=== PATIENT | female | born 1950 | race Caucasian/White ===

== ENCOUNTER 2023-01-25 01:11 | Inpatient (IN) | payer MEDICARE, SELFPAY ==
[2023-01-25] VITALS (60 sets, daily range): BP systolic 103–147; BP diastolic 58–107; PULSE 64–141; RESP 12–29; TEMP 36–36.7; O2SAT 65–100; BMI 39.6; BMI 38.5
--- NOTE | 2023-01-25 | ECHO_ITS ---
Patient Info Name: Janeth Betancur Age: 73 years : 1950 Gender: Female Ht: 64 in Wt: 220 lbs BSA: 2.17 m2 HR: 78 bpm BP: 135 / 107 mmHg Technical Quality: Poor Exam Date: 01/25/2023 3:26 PM Exam Location: Echo Lab Exam Room: 213 Patient Status: Outpatient Admit Date: 01/25/2023 Staff Ordering Physician: Cynthia Black DO Jacquard Loom Carpet Weaver: Maki Mayers RDCS Attending Provider: Cynthia Black DO Referring Physician: Sofia THOMPSON; Exam Type: CA echo dop color flow w con Study Info Indications - PULM EDEMA DIASTOLIC HF Complete two-dimensional, color flow and Doppler transthoracic echocardiogram is performed with contrast to opacify the left ventricle and to improve the deliniation of the left ventricle endocardial borders. Contrast/Agitated Saline Contrast/Ag. Saline: Definity Amount: 2.00 ml Administered By: Maki Mayers [facility] Existing IV Access: Yes IV Access Condition: patent with no signs of infiltration Reason for Poor Study: patient body habitus Summary 1. Mild left ventricular enlargement with normal thickness. Normal left ventricular function, with no focal wall abnormalities. EF 55-60%. Grade 2 diastolic dysfuntion. 2. Left atrial chamber dimension is mildly enlarged. 3. There is moderate to moderately severe mitral valve regurgitation. 4. Moderate pulmonary hypertension, estimated pulmonary arterial systolic pressure is 55 mmHg. 5. Normal sinus rhythm. Left Ventricle Left ventricular chamber dimension is mildly enlarged. Left ventricular systolic function is normal, estimated at 55-60%. There is no increased left ventricular wall thickness. Left ventricular septal wall motion is normal. The left ventricular diastolic function is grade II diastolic dysfunction. Right Ventricle Right ventricular chamber dimension is normal. Right ventricular systolic function is normal. Left Atria Left atrial chamber dimension is mildly enlarged. Right Atria Right atrial chamber dimension is normal. Aortic Valve The aortic valve is trileaflet. There is no aortic valve sclerosis. There is no aortic valve stenosis. There is no aortic valve regurgitation. Pulmonic Valve The pulmonic valve is normal. There is no pulmonic valve stenosis. There is no pulmonic regurgitation. Mitral Valve The mitral valve has normal leaflets. There is no mitral valve stenosis. There is moderate to moderately severe mitral valve regurgitation. Tricuspid Valve The tricuspid valve leaflets are normal. There is no significant tricuspid valve stenosis. There is trace tricuspid valve regurgitation. Moderate pulmonary hypertension, estimated pulmonary arterial systolic pressure is 55 mmHg. Pericardium/Pleural The pericardium appears normal. There is no pericardial effusion. Inferior Vena Cava Normal inferior vena cava with >50% collapse upon inspiration consistent with Empty right atrial pressure, 10 mmHg. Aorta The aortic root size at the sinus of Valsalva is normal. The prox ascending aorta size is normal. Left Ventricular Outflow Tract Name Value Normal LVOT 2D LVOT Diameter 1.99 cm LVOT Doppler LVOT Peak Gradient
--- NOTE | ~2023-01-25 | XR_ITS ---
EXAMINATION: XR chest 1V portable DATE: 01/28/2023 12:32 INDICATION: Congestive heart failure. Dyspnea on exertion. TECHNIQUE: A single frontal view of the chest was obtained. COMPARISON: Chest single view 01/25/2023, chest CT 01/25/2023 FINDINGS: There is no pneumonia, pleural effusion, or pneumothorax. Cardiomegaly is noted. IMPRESSION: 1. Cardiomegaly. Reviewed, dictated and finalized at location A. NNA DESIGN ENGINEER IMPRESSION: 1. Cardiomegaly.
--- NOTE | ~2023-01-25 | NM_ITS ---
EXAMINATION: NM lung vent and perfusion DATE: 01/25/2023 12:31 INDICATION: Shortness of breath. TECHNIQUE: 7.933 mCi xenon-133 was administered for respiration images. 5.5 mCi Tc-99m MAA was admini stered intravenously for perfusion images. Scintigraphic images of the chest were obtained. COMPARISON: Chest CT 01/25/2023, chest single view 01/25/2023 FINDINGS: Respiration images demonstrate multiple small and moderate size defects. Perfusion images show matche d small and moderate size defects in the lower lobes and upper lobes. IMPRESSION: 1. Nondiagnostic (intermediate probability for pulmonary embolism). Reviewed, dictated and finalized at location A. RANCE ANALYST
--- NOTE | ~2023-01-25 | CT_ITS ---
CT Scan of the Chest without Contrast: Clinical Indication: Shortness of breath Technique: Contiguous sections were acquired throughout the chest without intravenous contrast. Dose reduction technique was used on this scan by utilizing automated exposure control and iterative recon struction technique. The dose-length product (DLP) was 552.25 mGy-cm. Findings: There is no evidence of any significant mediastinal, hilar or axillary lymphadenopathy. Shotty medias tinal lymph nodes not frankly enlarged by size criteria. No pericardial effusion. Small bilateral pleural effusions are present. There is extensive patchy groundglass opacity througho ut both lungs. Images through the upper abdomen reveal no abnormalities. Impression: Patchy groundglass opacity throughout both lungs, suggestive of moderate pulmonary edema. Correlate c linically for infection or other alveolar airspace disease processes. Small bilateral pleural effusions. Reviewed, dictated and finalized at [facility] [place]. ACE SUPPLY BREATHING APPARATUS Impression: Patchy groundglass opacity throughout both lungs, suggestive of moderate pulmon christian edema. Correlate clinically for infection or other alveolar airspace diseas e processes. Small bilateral pleural effusions.
--- NOTE | ~2023-01-25 | CT_ITS ---
EXAMINATION: CTA chest DATE: 01/31/2023 01:30 INDICATION: Hypoxia. TECHNIQUE: Computed tomographic angiography (CTA) of the chest was performed without and with 100 mL Omnipaque-350 intravenous contrast. Automated exposure control and iterative reconstruction technique were employed. The dose-length product was 848.94 mGy-cm. Maximum intensity projection 3D-reconstruc tions of the aorta and other arteries were constructed by the technologist on a separate workstation. COMPARISON: Chest CT 01/25/2023 FINDINGS: The lungs demonstrate mild atelectasis. There are widespread patchy groundglass opacities i n the lungs. No pleural effusion. There are nodules in the thyroid measuring up to 13 mm, likely not clinically significant. Cardiomegaly is noted. No pericardial effusion. Calcified right hilar lymph n odes are consistent with old granulomatous disease. There is mild aortic atherosclerosis. There is no pulmonary embolus. There is a small sliding hiatal hernia. Calcifications in the liver and spleen ar e consistent with old granulomatous disease. 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 Ther e is severe thoracic spondylosis. There is mild chronic anterior wedging of multiple thoracic vertebr al bodies. IMPRESSION: 1. Mild aortic atherosclerosis. No aortic aneurysm or dissection. 2. No pulmonary embolus. 3. Diffuse lung disease, stable from 01/25/2023, consistent with pulmonary edema versus atypical pneu monia. Reviewed, dictated and finalized at location E. R SETTER IMPRESSION: 1. Mild aortic atherosclerosis. No aortic aneurysm or dissection. 2. No pulmonary embolus. 3. Diffuse lung disease, stable from 01/25/2023, consistent with pulmonary dory a versus atypical pneumonia.
--- NOTE | ~2023-01-25 | XR_ITS ---
Portable chest x-ray Comparison: None Clinical History: Shortness of breath Findings: Extensive hazy airspace disease is consistent with moderate pulmonary edema. No definite p leural effusions. Cardiomediastinal silhouette is unremarkable. Bones and soft tissues are unremarka ble. Impression: Moderate pulmonary edema pattern. Reviewed, dictated and finalized at [facility]. GER LANDSCAPE Impression: Moderate pulmonary edema pattern.
--- NOTE | 2023-01-25 01:13 | ECG_ITS ---
Measurements Intervals [place] Rate: 155 P: 232 GA: 82 QRS: 60 QRSD: 112 T: 45 QT: 346 QTc: 556 Interpretive Statements SUPRAVENTRICULAR TACHYCARDIA, CONSIDER ATRIAL FLUTTER INTRAVENTRICULAR CONDUCTION DELAY CANNOT RULE OUT SEPTAL INFARCT, AGE INDETERMINATE BORDERLINE ST-T WAVE ABNORMALITY- DIFFUSE LEADS BASELINE ARTIFACT- I, II, AVR, AVL, AVF, V1-V6 ABNORMAL ECG NO PREVIOUS ECG AVAILABLE FOR COMPARISON Electronically Signed On 01-25-2023 6:24:32 STAFF DEVELOPMENT EDUCATOR by Itz Griffin D.O.
--- NOTE | 2023-01-25 01:36 | ED.SOB ---
HPI - SOB/Dyspnea General Chief Complaint: Shortness of Breath/Dyspnea Stated Complaint: sob Time Seen by Provider: 01/25/23 01:12 History of Present Illness HPI Narrative: Pt brought in by ems for respiratory distress. She denies h/o asthma, copd and CHF. She has bilateral lower extremity edema. EMS states when they picked her up she could speak in 2 word sentences that were given her an albuterol treatment she became acutely more short of breath with inability to talk. She is currently on BiPAP and nods her head saying that she has had flu-like symptoms past couple days. She is currently taking her to chemotherapy regularly. Related Data Allergies Allergy/AdvReac Type Severity Reaction Status Date / Time iodine Allergy Rash Verified 01/25/23 03:44 Penicillins Allergy Other Verified 01/25/23 03:44 Review of Systems Review of Systems: Unable to obtain complete review of systems due to patient's respiratory distress Exam Narrative: GENERAL: Acute distress, short of breath, tachypneic HEAD: Normocephalic, atraumatic. EYES: PERRLA and EOMI. ENT: Nares clear, no rhinorrhea or epistaxis. Mucous membranes moist. NECK: Supple. CHEST: Respiratory distress lungs coarse HEART: Regular rate and rhythm. ABDOMEN: Soft, nontender, nondistended. EXTREMITIES: Normal range of motion. Edema bilateral lower extremity. SKIN: Warm, dry, no rash. NEURO: No focal deficits. Alert and oriented x3. PSYCH: Normal mood and affect. Course Course Emergency Course: Due to high probability of clinically significant lift threatening deterioration, the patient required my highest level of preparedness to intervene emergently. Critical care time documented not including procedures needed Telemetry ordered due to shortness of breath to evaluate for dysrhythmias. Evaluated by myself. Rhythm sinus tach Rate 130 Patient very critically ill and placed on BiPAP. Concern for CHF versus acute pulmonary edema versus COVID or PE. Vital Signs Vital signs: Vital Signs Pulse Rate 87 01/25/23 01:00 Respiratory Rate 27 H 01/25/23 01:00 Pulse Oximetry 98 01/25/23 01:00 Oxygen Delivery BiPAP 01/25/23 01:00 Temperature 36.7 C 01/25/23 01:15 Pulse Rate 141 H 01/25/23 01:15 Respiratory Rate 29 H 01/25/23 01:15 Blood Pressure 135/107 H 01/25/23 01:15 Pulse Oximetry 65 L 01/25/23 01:15 Oxygen Delivery Room Air 01/25/23 01:15 MDM - SOB/Dyspnea MDM Narrative Medical decision making narrative: White blood cell count elevated to 18 ABG shows hypoxemia but her pulse ox is consistently high 90s playground monitor normal sinus rhythm and she blood pressure is normal D-dimer and BNP both elevated CT chest ordered Due to elevated BMP clinical presentation Lasix ordered Lab Data 01/25/23 01:37 01/25/23 01:37 Labs: Lab Results 01/25/23 01/25/23 Range/Units 01:37 01:41 WBC 18.1 H (4.5-10.0) K/mm3 RBC 5.15 (4.2-5.4) M/mm3 Hgb 13.7 (12.0-15.0) g/dL Hct 45.3 (37.0-47.0) % MCV 88.0 (80-100) fl MCH 26.6 (26-34) pg MCHC 30.2 L (32-36) g/dl RDW 15.7 H (11.5-14.5) % Plt Count 377 H (150-375) k/mm3 MPV 10.3 (7.4-10.4) fl Immature Gran % (Auto) 0.8 H (0-0.5) % Neut % (Auto) 78.6 H (45.5-73.1) % Lymph % (Auto) 11.9 L (18.3-44.2) % [place] % (Auto) 6.9 (2.6-8.5) % Eos % (Auto) 1.4 (0-4.4) % Baso % (Auto) 0.4 (0.2-1.2) % Lymph # (Auto) 2.16 (0.9-3.2) K/mm3 [place] # (Auto) 1.2 H (0.1-0.6) K/mm3 Eos # (Auto) 0.3 (0-0.3) K/mm3 Baso # (Auto) 0.1 (0.0-0.1) K/mm3 Abs Immat Gran (auto) 0.15 H (0.00-0.031) K/mm3 Absolute Neuts (auto) 14.2 H (1.3-6.7) K/mm3 Absolute Nucleated RBC 0.0 (0.0-0.012) K/mm3 Nucleated RBC % 0.0 (0.0-0.2) % PT 14.5 (11.1-14.7) Seconds INR 1.1 D-Dimer 2.08 H (<0.48) ug/mL Expiratory Pressure 6 CMH2O Inspiratory Pressure 12 CMH2O Sodium 140 (137-145) mmol/L
[2023-01-25] MEDS: diphenhydrAMINE HCl INJ 50 MG/ML VIAL 25 MG IV PUSH (01:42)
[2023-01-25] MEDS: ONDANSETRON INJ 4 MG/2 ML VIAL (01:42)
[2023-01-25] MEDS: MAGNESIUM SULF 2 GM/WATER 50ML 2 GM/50 ML BAG IVPB (01:43)
[2023-01-25] MEDS: methylPREDNISolone SOD SUCC 125 MG VIAL IV PUSH (01:43)
[2023-01-25] MEDS: METOCLOPRAMIDE HCL INJ 10 MG/2 ML VIAL IV PUSH (01:44)
[2023-01-25 01:53] LABS: Alveolar/Arterial O2 Gradient 208.9 mmHg; Base Excess ABG -5.8 mEq/l (+/-2.0); Fractional Inspired Oxygen 60 %; HCO3 ABG 21.3 mEq/l (22.0-26.0); Oxygen Content ABG 19.3 %vol (16.0-22.0); Oxygen Saturation ABG 98.9 % (95.0-100.0); Oxyhemoglobin 97.2 % THb (90.0-100.0); PCO2 ABG 47.9 mmHg (35.0-45.0); PO2 ABG 166.2 mmHg (80.0-100.0); PO2 FiO2 Ratio Arterial Blood 2.77 %; Total Hemoglobin 13.9 g/dL (12.0-18.0)
[2023-01-25 01:55] LABS: Device NON-INVASIVE VENT; Modified Allen's Test Pass; Site Drawn RIGHT RADIAL; pH ABG 7.266 (7.350-7.450)
[2023-01-25 01:56] LABS: Non-Invasive Expiratory Pressure 6 CMH2O; Non-Invasive Inspiratory Pressure 12 CMH2O; Non-Invasive Vent Rate 14 /MIN
[2023-01-25 01:57] LABS: Basophils Absolute Auto 0.1 K/mm3 (0.0-0.1); Basophils Percent Auto 0.4 % (0.2-1.2); Eosinophils Absolute Auto 0.3 K/mm3 (0-0.3); Eosinophils Percent Auto 1.4 % (0-4.4); Hematocrit 45.3 % (37.0-47.0); Hemoglobin 13.7 g/dL (12.0-15.0); Immature Granulocyte Absolute 0.15 K/mm3 (0.00-0.031); Immature Granulocyte Percent A 0.8 % (0-0.5); Lymphocytes Absolute Auto 2.16 K/mm3 (0.9-3.2); Lymphocytes Percent Auto 11.9 % (18.3-44.2); Mean Corpuscular HGB Conc 30.2 g/dl (32-36); Mean Corpuscular Hemoglobin 26.6 pg (26-34); Mean Platelet Volume 10.3 fl (7.4-10.4); Monocytes Absolute Auto 1.2 K/mm3 (0.1-0.6); Monocytes Percent Auto 6.9 % (2.6-8.5); Neutrophils Absolute Auto 14.2 K/mm3 (1.3-6.7); Neutrophils Percent Auto 78.6 % (45.5-73.1); Platelet Count Result 377 k/mm3 (150-375); Red Blood Count 5.15 M/mm3 (4.2-5.4); Red Cell Distribution Width 15.7 % (11.5-14.5); White Blood Count 18.1 K/mm3 (4.5-10.0)
[2023-01-25 02:10] LABS: INR 1.1; Prothrombin Time 14.5 Seconds (11.1-14.7)
[2023-01-25 02:11] LABS: Alanine Aminotransferase 18 U/L (6-35); Albumin Level 4.1 g/dL (3.5-5.1); Alkaline Phosphatase 96 U/L (38-126); Anion Gap 17 mmol/L (8-16); Aspartate Amino Transferase 22 U/L (14-36); Bilirubin,Total 0.8 mg/dL (0.2-1.3); Blood Urea Nitrogen 15 mg/dL (7-17); Carbon Dioxide 19 mmol/L (22-30); Chloride 104 mmol/L (98-107); Creatine Kinase 37 U/L (30-135); Estimated Glomerular Filt Rate 40; Glucose 287 mg/dL (65-110); Potassium 3.6 mmol/L (3.4-5.0); Sodium 140 mmol/L (137-145)
[2023-01-25 02:19] LABS: D Dimer 2.08 ug/mL (<0.48)
[2023-01-25 02:22] LABS: NT Pro B Type Natriuretic Pept 2560 pg/mL (19.9-100); Troponin I < 0.012 ng/mL (0.000-0.034)
[2023-01-25 02:35] LABS: Influenza A QL RT-PCR Negative (Negative); Influenza B QL RT-PCR Negative (Negative); RSV RNA, RT-PCR Negative (Negative); SARS-CoV-2 RNA PCR Negative (Negative)
[2023-01-25 02:41] LABS: Procalcitonin 0.1 ng/mL
[2023-01-25 02:54] LABS: Lactic Acid Reflex 5.2 mmol/L (0.7-2.0)
--- NOTE | 2023-01-25 02:56 | ECG_ITS ---
Measurements Intervals [place] Rate: 84 P: 35 [place]: 123 QRS: 50 QRSD: 85 T: 40 QT: 419 QTc: 498 Interpretive Statements SINUS RHYTHM BASELINE ARTIFACT- I, II, III, AVR, AVL, V5 NORMAL ECG COMPARED TO ECG 01/25/2023 01:15:32 SINUS RHYTHM NOW PRESENT Electronically Signed On 01-25-2023 6:24:49 VIDEO TAPE EDITOR by Itz Griffin D.O.
[2023-01-25] MEDS: FUROSEMIDE INJ 40 MG/4 ML VIAL IV PUSH ×3 (04:25→17:51)
[2023-01-25 04:55] LABS: Reflex Lactic Acid Yes or No Add Lactic
[2023-01-25 05:49] LABS: Appearance Urine Clear (Clear); Bacteria Urine Rare /hpf; Bilirubin Urine Negative (Negative); Blood Urine Negative (Negative); Color Urine Yellow (Yellow); Glucose Urine UA Negative (Negative); Hyaline Casts Urine Present /lpf; Ketones Urine Negative (Negative); Leukocyte Esterase Ur 1+ LEU/UL (Negative); Nitrate Urine Negative (Negative); Protein Urine 2+ mg/dL (Negative); Specific Grav Ur 1.014 (1.001-1.035); Squamous Epithelial Cell Urine Occasional /hpf (Few); Urobilinogen Urine 0.2 mg/dL (<2.0); pH Urine 5.5 (5.0-9.0)
[2023-01-25 05:51] LABS: Add Urine Microscopic? YES
[2023-01-25 06:53] LABS: Lactic Acid Reflex 1.9 mmol/L (0.7-2.0)
[2023-01-25 07:10] LABS: Troponin I 0.202 ng/mL (0.000-0.034)
--- NOTE | 2023-01-25 07:15 | PC.NURSE ---
report received from certified residential medication aide rn. pt tolerating cpap well. family at bedside. denies needs at this time. waiting bed assignment.
--- NOTE | 2023-01-25 08:56 | PM.CNCAR ---
Assessment and Plan Assessment and plan (1) Acute on chronic diastolic heart failure: Code(s): I50.33 - Acute on chronic diastolic (congestive) heart failure Status: Acute Assessment and Plan: Patient presents with severe acute on chronic diastolic heart failure. I suspect this is due to dietary noncompliance. Apparently her blood pressures not been well controlled recently, and it looks like she is on fewer BP meds than she was when she saw Dr. Deutsch in September (no amlodipine on her current med list). BP here actually is good. --continue BiPAP as needed --furosemide 40 mg IV push b.i.d. --daily BMP --add Farxiga or Jardiance --add spironolactone --echocardiogram --dietitian for low-sodium diet (2) Elevated troponin: Code(s): R79.89 - Other specified abnormal findings of blood chemistry Status: Acute Assessment and Plan: Her troponin is mildly elevated but I think this is more likely non ischemic myocardial injury rather than a non-STEMI, as there was no typical chest discomfort and her 2nd EKG is normal. --trend troponin (3) Hypertension: Code(s): I10 - Essential (primary) hypertension Status: Acute Assessment and Plan: Apparently not well controlled recently. --continue metoprolol, telmisartan --as spironolactone --continue furosemide (4) Diabetes: Code(s): E11.9 - Type 2 diabetes mellitus without complications Status: Acute Assessment and Plan: Treatment per hospitalist --resume rosuvastatin (5) Lymphedema: Code(s): I89.0 - Lymphedema, not elsewhere classified Status: Acute Assessment and Plan: Chronic edema, with history of cellulitis History of Present Illness History of Present Illness Consult date/time: 01/25/23 08:56 Reason For Visit: heart failure,acute respiratory failure Narrative: Janeth Betancur 73-year-old white female whom we were asked to see at the request of Dr. Mercer in the emergency room for advice and opinion regarding her new onset? Of diastolic heart failure, in consultation. The patient is usually seen by Dr. Adam Deutsch at [place] for her chronic diastolic heart failure, hypertension and she also has a history of dyslipidemia, diabetes, lower extremity cellulitis and obesity. When she was last seen by him in August, her blood pressure was elevated and her metoprolol was increased. The patient has chronic MILLER doing things outside the home but not inside home. She has chronic lower extremity edema which is not changed. She has not checked her weight recently. She does not follow a low-salt diet. Her blood pressure has been high recently. Her furosemide was reduced from 80 mg to 40 mg daily a few months ago because of urinary frequency and incontinence. She has been under lot of stress because her is getting chemotherapy. She has had some vague chest tightness which she thinks was asthma. Yesterday she was little more short of breath than usual. Last night she woke severely short of breath and thought she was going to . No chest discomfort last night. She called EMS and came to the emergency room in severe distress. She was given IV Lasix and BiPAP with improvement. Her usual PMD is Dr. Craft. She is accompanied by her daughter Noelle. Her current medication list is: Furosemide 80 mg half a tablet daily, metoprolol XL 50 mg a day, rosuvastatin 20 mg q.h.s., escitalopram 10 mg daily, allopurinol 100 mg daily, telmisartan 40 mg daily, Flovent, mupirocin ointment 2%. She has been compliant with her medications. Lactic acid 5.2 --> 1.9 Trop 0.023, .202 Pro BNP 2600 EKG 01/25/2023 at 1:15 a.m.: Probable sinus tach, nonspecific ST-T changes EKG 01/25/2023 at 3:23 a.m.: NSR, normal EKG EKGs personally reviewed Chest x-ray: Moderate pulmonary edema (personally reviewed, agree.) Chest CT without contrast: CHF, small bilateral effusions 07/2021 echo: Technically difficult
--- NOTE | 2023-01-25 09:31 | PC.NURSE ---
dr nunez at bedside.
[2023-01-25 10:27] LABS: Troponin I 0.224 ng/mL (0.000-0.034)
--- NOTE | 2023-01-25 14:24 | ADMGEN ---
This patient, Janeth Betancur, was admitted to IMU Room 213-01. Patient/family oriented to hospital policies and general routines including ID bracelet, bed and alarms, visiting hours, pain management, procedures, bathroom and other care routines, personal items, smoking policy, room service/diet, and visiting hours. Information on how to activate the Rapid Response Team has been discussed. Patient/Family are encouraged to report perceived risks to care and to ask questions if they do not understand what they are told or what they should do.
[2023-01-25] MEDS: PERFLUTREN LIPID MICROSPHERES 1.5 ML VIAL DILUTED TO 10 ML TOTAL VOLUME IV PUSH (16:30)
--- NOTE | 2023-01-25 16:46 | IVDEFINITY ---
Prior to administration of IV Definity the patient was educated on the risks and benefits of the imaging enhancing agent including potential adverse side effects. The patient verbalized understanding. Allergies were verified. No exclusion criteria were identified and at least one of the following inclusion criteria were met: 1) physician request, 2) patient technically difficult to image (per the [place] [employer] guidelines of two or more segments not discernable within the apical view), or 3) questionable left ventricular function. ?
--- NOTE | 2023-01-25 17:35 | PM.IMHP ---
H&P: HPI History of Present Illness Date/Time: 01/25/23 17:35 Chief Complaint: shortness of breath Narrative: 73F w/ pmh HFpEF, NIDDM, HLD, HTN, lymphedema presents with progressive shortness of breath. she denies chest pain, cough, abdominal pain, n/v/d. she does have rash on her legs Review of Systems Review of Systems: All systems reviewed & are unremarkable except as noted in HPI and below PMFSH Past Medical History Medical History (Updated 01/25/23 @ 17:38 by Olena Thomas MD) Chronic diastolic heart failure Diabetes Hyperlipidemia Hypertension Lymphedema Family History Family History (Updated 01/25/23 @ 17:34 by Veronica Parker MD) Father Heart disease Mother Sudden Found in an unairconditioned apartment in the summer Social History Social History (Updated 01/25/23 @ 10:00 by Veronica Parker MD) Social History: Patient lives with her was undergoing chemotherapy. Has at least 2 daughters, one of whom is Hortencia. Smoking status: Never smoker Alcohol intake: never Substance use: never Lack of Transportation: No Lack of Food: Never True Current Housing: I Have Housing Concerned About Future Housing: No Difficulty Paying Gas/Electric Bills: No Difficulty Paying for Meds: No Currently Unemployed: No Education: Associate Degree Difficulty w/ Childcare or Family Care: No Spiritual care concerns: No Meds Home Medications and Allergies Home Medications Medication Instructions Recorded Confirmed Type albuterol sulfate 90 mcg/actuation 1 - 2 puff inhalation Q4-6H PRN 01/25/23 01/25/23 History aerosol inhaler Shortness Of Breath Or Wheezing ammonium lactate 12 % lotion 1 applic topical DAILY PRN Dry Skin 01/25/23 01/25/23 History citalopram 10 mg tablet 10 mg PO HS 01/25/23 01/25/23 History fluticasone propionate 44 1 inh inhalation DAILY 01/25/23 01/25/23 History mcg/actuation HFA aerosol inhaler (Flovent HFA) furosemide 80 mg tablet 40 mg PO DAILY 01/25/23 01/25/23 History metoprolol succinate 50 mg 50 mg PO DAILY 01/25/23 01/25/23 History tablet,extended release 24 hr rosuvastatin 20 mg tablet 20 mg PO HS 01/25/23 01/25/23 History telmisartan 40 mg tablet 40 mg PO HS 01/25/23 01/25/23 History Allergies Allergy/AdvReac Type Severity Reaction Status Date / Time iodine Allergy Rash Verified 01/25/23 03:44 Penicillins Allergy Other Verified 01/25/23 14:36 Vital Signs Vital Signs - 24 hr 01/25/23 01:00 01/25/23 01:15 01/25/23 01:15 Temperature 98.0 F Pulse Rate 87 94 141 H Respiratory Rate 27 H 29 H Blood Pressure 135/107 H Pulse Oximetry 98 65 L Oxygen Delivery BiPAP Room Air Oxygen Flow Rate Fraction of Inspired Oxygen 01/25/23 04:08 01/25/23 02:00 01/25/23 03:00 Temperature Pulse Rate 82 90 87 Respiratory Rate 24 H 25 H 22 H Blood Pressure 130/85 115/74 Pulse Oximetry 98 98 96 Oxygen Delivery BiPAP Oxygen Flow Rate Fraction of Inspired Oxygen 01/25/23 04:00 01/25/23 05:00 01/25/23 05:30 Temperature Pulse Rate 79 94 74 Respiratory Rate 20 21 H 19 Blood Pressure 118/75 122/85 109/70 Pulse Oximetry 97 98 97 Oxygen Delivery Oxygen Flow Rate Fraction of Inspired Oxygen 01/25/23 07:30 01/25/23 08:10 01/25/23 08:11 Temperature Pulse Rate 74 74 72 Respiratory Rate 19 17 16 Blood Pressure 113/70 Pulse Oximetry 98 98 98 Oxygen Delivery BiPAP BiPAP Oxygen Flow Rate Fraction of Inspired Oxygen 40 01/25/23 11:37 01/25/23 11:58 01/25/23 13:10 Temperature Pulse Rate 74 70 67 Respiratory Rate 18 15 16 Blood Pressure Pulse Oximetry 99 98 99 Oxygen Delivery BiPAP Nasal Cannula BiPAP Oxygen Flow Rate 4 Fraction of Inspired Oxygen 01/25/23 13:11 01/25/23 07:20 01/25/23 07:22 Temperature Pulse Rate 67 77 81 Respiratory Rate 14 22 H 16 Blood Pressure 128/87 Pulse Oximetry 98 99 98 Oxygen Deli
[2023-01-25 18:58] LABS: Glucose Point of Care 141 mg/dl (65-105)
[2023-01-25] MEDS: ACETAMINOPHEN 325 MG TABLET 650 MG PO (20:14)
[2023-01-25] MEDS: HEPARIN SODIUM 5,000 UNITS/ML VIAL 5000 UNITS SUB-Q (20:15)
[2023-01-25 20:33] LABS: Troponin I 0.118 ng/mL (0.000-0.034)
[2023-01-25 20:43] LABS: Glucose Point of Care 201 mg/dl (65-105)
[2023-01-25] MEDS: INSULIN ASPART (*BKC) 100 UNITS/ML SUB-Q (21:20)
[2023-01-26] VITALS (18 sets, daily range): BP systolic 127–154; BP diastolic 58–91; PULSE 57–84; RESP 15–22; TEMP 36.1–36.8; O2SAT 91–100
[2023-01-26 05:35] LABS: Basophils Percent Auto 0.2 % (0.2-1.2); Hematocrit 42.5 % (37.0-47.0); Hemoglobin 12.7 g/dL (12.0-15.0); Immature Granulocyte Absolute 0.13 K/mm3 (0.00-0.031); Immature Granulocyte Percent A 0.7 % (0-0.5); Lymphocytes Absolute Auto 1.03 K/mm3 (0.9-3.2); Lymphocytes Percent Auto 5.5 % (18.3-44.2); Mean Corpuscular HGB Conc 29.9 g/dl (32-36); Mean Corpuscular Hemoglobin 26.3 pg (26-34); Mean Corpuscular Volume 88.2 fl (80-100); Monocytes Absolute Auto 1.2 K/mm3 (0.1-0.6); Monocytes Percent Auto 6.5 % (2.6-8.5); Neutrophils Absolute Auto 16.5 K/mm3 (1.3-6.7); Neutrophils Percent Auto 87.1 % (45.5-73.1); Platelet Count Result 264 k/mm3 (150-375); Red Blood Count 4.82 M/mm3 (4.2-5.4); Red Cell Distribution Width 15.1 % (11.5-14.5); White Blood Count 18.9 K/mm3 (4.5-10.0)
[2023-01-26 05:44] LABS: Anion Gap 11 mmol/L (8-16); Blood Urea Nitrogen 23 mg/dL (7-17); Carbon Dioxide 29 mmol/L (22-30); Chloride 98 mmol/L (98-107); Estimated CRCL calculation 52 ml/min; Estimated Glomerular Filt Rate 49; Glucose 154 mg/dL (65-110); Potassium 3.9 mmol/L (3.4-5.0); Sodium 138 mmol/L (137-145)
[2023-01-26 06:27] LABS: Burr Cells 1+ (NORMAL); Ovalocytes 1+ (NORMAL); Platelet Estimate Adequate (Adequate); Schistocytes None Seen (NORMAL)
[2023-01-26 06:39] LABS: Procalcitonin 1.7 ng/mL
[2023-01-26 07:55] LABS: Glucose Point of Care 140 mg/dl (65-105)
[2023-01-26] MEDS: FUROSEMIDE INJ 40 MG/4 ML VIAL IV PUSH ×2 (09:31→17:37)
[2023-01-26] MEDS: POTASSIUM CHLORIDE 10 MEQ ER TABLET PO ×2 (09:31→17:37)
[2023-01-26] MEDS: HEPARIN SODIUM 5,000 UNITS/ML VIAL 5000 UNITS SUB-Q ×2 (09:31→21:07)
[2023-01-26] MEDS: EMPAGLIFLOZIN 10 MG TABLET PO (09:32)
[2023-01-26] MEDS: SPIRONOLACTONE 25 MG TABLET PO (09:32)
[2023-01-26] MEDS: METOPROLOL SUCCINATE EXT REL 50 MG TABCR PO (09:32)
[2023-01-26 11:20] LABS: Glucose Point of Care 171 mg/dl (65-105)
--- NOTE | 2023-01-26 12:38 | PM.PNCARD ---
Progress Note: A&P Assessment and Plan (1) Acute on chronic diastolic heart failure: Code(s): I50.33 - Acute on chronic diastolic (congestive) heart failure Status: Acute Assessment and Plan: Patient presents with severe acute on chronic diastolic heart failure. I suspect this is due to dietary noncompliance. Apparently her blood pressures not been well controlled recently, and it looks like she is on fewer BP meds than she was when she saw Dr. Deutsch in September (no amlodipine on her current med list). BP here actually is good. --Supplemental O2 as needed --Continue furosemide 40 mg IV push b.i.d. today, shift to p.o. tomorrow --daily BMP --Continue jardiance --Continue spironolactone --echo showed normal LV systolic function with grade II diastolic dysfunction. --Reviewed low sodium diet, importance of BP control, weight loss (2) Elevated troponin: Code(s): R79.89 - Other specified abnormal findings of blood chemistry Status: Acute Assessment and Plan: Her troponin is mildly elevated but I think this is more likely non ischemic myocardial injury rather than a non-STEMI, as there was no typical chest discomfort and her 2nd EKG is normal. --troponin stable, downtrended (3) Hypertension: Code(s): I10 - Essential (primary) hypertension Status: Acute Assessment and Plan: Apparently not well controlled recently. --continue metoprolol, telmisartan --as spironolactone --continue furosemide (4) Diabetes: Code(s): E11.9 - Type 2 diabetes mellitus without complications Status: Acute Assessment and Plan: Treatment per hospitalist --resume rosuvastatin (5) Lymphedema: Code(s): I89.0 - Lymphedema, not elsewhere classified Status: Acute Assessment and Plan: Chronic edema, with history of cellulitis Subjective Date/time seen: 01/26/23 12:38 Interval history: Cardiology follow up for CHF Feeling better today. Less short of breath. Complaining of some lower back pain and discomfort from the purewick. Denies chest pain, palpitations. Review of Systems Constitutional: Constitutional: Denies fever(s) Eyes: Eyes: Reports no additional eye complaints ENT: Denies epistaxis Cardiovascular: Cardiovascular: Denies chest pain, Reports pedal edema, Reports leg edema, Reports lightheadedness (When turning head too fast), Reports dyspnea and Reports dyspnea on exertion Respiratory: Respiratory: Denies chest congestion, Reports cough (Nonproductive), Reports dyspnea, Reports dyspnea on exertion and Reports wheezing (And tightness with history of asthma) Gastrointestinal: Gastrointestinal: Denies abdominal pain, Denies hematochezia and Reports constipation Genitourinary: Genitourinary: Denies hematuria and Reports urinary urgency Musculoskeletal: Musculoskeletal: Reports no additional musculoskeletal complaints Integumentary/Breasts: Skin/Breast: Reports system reviewed and no additional complaints, except as docu and Reports erythema Neurologic: Reports system reviewed and no additional complaints, except as documented, Denies behavioral changes and Denies confusion Psychiatric: Psychiatric: Denies behavioral changes and Denies confusion Allergic/Immunologic: Allergic/Immunologic: Reports wheezing (And tightness with history of asthma) Exam Const: General: cooperative and comfortable; No confusion Orientation/consciousness: oriented to person, patient oriented x3 and No confusion HENMT: Mouth: Yes dry mucous membranes Eyes: General: appearance normal, both eyes and all related structures EOM: EOMs intact bilaterally Neck: Neck: supple and no JVD Thyroid: thyroid normal Resp: Effort & Inspection: normal respiratory effort Auscultation: clear to auscultation bilaterally and diminished lung sounds Cardio: Rate: regular rate Rhythm: regular rhythm Heart sounds: no gallops and no murmurs GI: Inspection: normal to inspe
--- NOTE | 2023-01-26 16:37 | PM.IMPN ---
Progress Note: A&P Assessment and Plan (1) Irritant contact dermatitis: Code(s): L24.9 - Irritant contact dermatitis, unspecified cause Status: Acute (2) Elevated troponin: Code(s): R79.89 - Other specified abnormal findings of blood chemistry Status: Acute (3) Lymphedema: Code(s): I89.0 - Lymphedema, not elsewhere classified Status: Acute (4) Diabetes: Code(s): E11.9 - Type 2 diabetes mellitus without complications Status: Acute (5) Hypertension: Code(s): I10 - Essential (primary) hypertension Status: Acute (6) Acute on chronic diastolic heart failure: Code(s): I50.33 - Acute on chronic diastolic (congestive) heart failure Status: Acute (7) Acute respiratory distress: Code(s): R06.03 - Acute respiratory distress Status: Acute (8) Hypoxemia requiring supplemental oxygen: Code(s): R09.02 - Hypoxemia; Z99.81 - Dependence on supplemental oxygen Status: Acute (9) Pulmonary vascular congestion: Code(s): R09.89 - Other specified symptoms and signs involving the circulatory and respiratory systems Status: Acute (10) Community acquired pneumonia: Code(s): J18.9 - Pneumonia, unspecified organism Status: Acute Plan cont mgmt for acute heart failure per cardiology irritant contact dermatitis improved cont accuchecks and iss overall improved. but with increasing white count and elevated procalcitonin with cough will treat for CAP with ceftriaxone and azithromycin full code stable. Subjective Date/time seen: 01/26/23 16:37 Interval history: NAOE. she feels better, but when sitting up she became a bit short of breath. had a non productive cough as well yesterday. daughter present in room Review of Systems Review of Systems: All systems reviewed & are unremarkable except as noted in HPI and below Exam Const: General: comfortable and no acute distress Other: obese Eyes: Pupils: Equal, round and reactive pupils present Neck: Neck: supple Resp: Effort & Inspection: normal respiratory effort Auscultation: crackles (moderate) Cardio: Rate: regular rate Rhythm: regular rhythm Heart sounds: no gallops, no murmurs and no rubs GI: GI Palp: Yes Soft to palpation and No Tenderness to palpation present (GI) Skin: Other: localized erythema of b/l LE improved. purplish discoloration of chronic stasis more apparent, and edema improved. Neuro: Motor exam (neuro): 5/5 motor strength present throughout Extrem: General: edema Objective Data Vital Signs Vital Signs: Vital Signs - 24 hr 01/25/23 17:00 01/25/23 18:00 01/25/23 18:00 Temperature Pulse Rate 73 Respiratory Rate Blood Pressure Pulse Oximetry 98 98 Oxygen Delivery Nasal Cannula Nasal Cannula Oxygen Flow Rate 3 2 01/25/23 19:35 01/25/23 20:24 01/26/23 00:00 Temperature 97.6 F 98.2 F Pulse Rate 77 71 67 Respiratory Rate 18 18 16 Blood Pressure 119/64 127/58 L Pulse Oximetry 95 98 100 Oxygen Delivery BiPAP Oxygen Flow Rate 01/26/23 02:39 01/25/23 20:00 01/25/23 22:00 Temperature Pulse Rate 57 L 72 65 Respiratory Rate 15 Blood Pressure Pulse Oximetry 98 Oxygen Delivery BiPAP Oxygen Flow Rate 01/26/23 00:00 01/26/23 02:00 01/26/23 04:00 Temperature 97.7 F Pulse Rate 61 59 L 66 Respiratory Rate 18 Blood Pressure 140/74 Pulse Oximetry 99 Oxygen Delivery Oxygen Flow Rate 01/26/23 04:00 01/26/23 06:00 01/26/23 08:00 Temperature 97.2 F L Pulse Rate 57 L 59 L 71 Respiratory Rate 22 H Blood Pressure 154/91 H Pulse Oximetry 100 Oxygen Delivery Oxygen Flow Rate 01/26/23 09:32 01/26/23 08:00 01/26/23 09:49 Temperature Pulse Rate 76 Respiratory Rate Blood Pressure Pulse Oximetry 100 100 Oxygen Delivery Nasal Cannula Room Air Oxygen Flow Rate 2 01/26/23 12:00 01/26/23 12:00 01/26/23 16:09 Te
[2023-01-26 17:22] LABS: Glucose Point of Care 101 mg/dl (65-105)
[2023-01-26] MEDS: AZITHROMYCIN 500 MG/NS 250 ML 500 MG/250 ML BAG 250 MG IVPB (17:37)
[2023-01-26] MEDS: cefTRIAXone 2 GM/NS 100 ML 2 GM/100 ML BAG IVPB (17:37)
[2023-01-26 20:26] LABS: Glucose Point of Care 122 mg/dl (65-105)
[2023-01-26] MEDS: TELMISARTAN 40 MG TABLET PO (21:07)
[2023-01-26] MEDS: ROSUVASTATIN 20 MG TABLET PO (21:07)
[2023-01-26] MEDS: ACETAMINOPHEN 325 MG TABLET 650 MG PO (22:39)
[2023-01-27] VITALS (24 sets, daily range): BP systolic 111–146; BP diastolic 59–82; PULSE 45–121; RESP 15–24; TEMP 36–36.6; O2SAT 93–100
--- NOTE | 2023-01-27 05:00 | ECG_ITS ---
Measurements Intervals [place] Rate: 64 P: 69 [place]: 139 QRS: 67 QRSD: 101 T: 82 QT: 534 QTc: 553 Interpretive Statements SINUS RHYTHM PROLONGED QT INTERVAL BASELINE ARTIFACT- I, II, III, AVF ABNORMAL ECG COMPARED TO ECG 01/25/2023 03:23:01 PROLONGED QT INTERVAL NOW PRESENT Electronically Signed On 01-27-2023 7:29:23 CHIEF OF FIELD OPERATIONS by Itz Griffin D.O.
[2023-01-27 05:11] LABS: Basophils Absolute Auto 0.1 K/mm3 (0.0-0.1); Basophils Percent Auto 0.5 % (0.2-1.2); Eosinophils Absolute Auto 0.1 K/mm3 (0-0.3); Eosinophils Percent Auto 0.8 % (0-4.4); Hematocrit 40.5 % (37.0-47.0); Hemoglobin 12.7 g/dL (12.0-15.0); Immature Granulocyte Absolute 0.06 K/mm3 (0.00-0.031); Immature Granulocyte Percent A 0.4 % (0-0.5); Lymphocytes Absolute Auto 2.83 K/mm3 (0.9-3.2); Mean Corpuscular HGB Conc 31.4 g/dl (32-36); Mean Corpuscular Hemoglobin 26.6 pg (26-34); Mean Corpuscular Volume 84.9 fl (80-100); Mean Platelet Volume 9.6 fl (7.4-10.4); Monocytes Absolute Auto 1.4 K/mm3 (0.1-0.6); Monocytes Percent Auto 10.1 % (2.6-8.5); Neutrophils Absolute Auto 9.6 K/mm3 (1.3-6.7); Neutrophils Percent Auto 68.2 % (45.5-73.1); Platelet Count Result 271 k/mm3 (150-375); Red Blood Count 4.77 M/mm3 (4.2-5.4); Red Cell Distribution Width 15.6 % (11.5-14.5); White Blood Count 14.1 K/mm3 (4.5-10.0)
[2023-01-27 05:21] LABS: Anion Gap 9 mmol/L (8-16); Blood Urea Nitrogen 28 mg/dL (7-17); Calcium 8.8 mg/dL (8.4-10.2); Carbon Dioxide 33 mmol/L (22-30); Chloride 96 mmol/L (98-107); Estimated CRCL calculation 47 ml/min; Estimated Glomerular Filt Rate 44; Glucose 113 mg/dL (65-110); Magnesium 2.4 mg/dL (1.6-2.3); Potassium 3.5 mmol/L (3.4-5.0); Sodium 138 mmol/L (137-145)
[2023-01-27 05:39] LABS: Procalcitonin 1.2 ng/mL
[2023-01-27 08:42] LABS: Glucose Point of Care 117 mg/dl (65-105)
[2023-01-27] MEDS: FUROSEMIDE INJ 40 MG/4 ML VIAL IV PUSH ×2 (09:33→18:37)
[2023-01-27] MEDS: HEPARIN SODIUM 5,000 UNITS/ML VIAL 5000 UNITS SUB-Q ×2 (09:33→20:18)
[2023-01-27] MEDS: POTASSIUM CHLORIDE 10 MEQ ER TABLET PO ×2 (09:34→18:37)
[2023-01-27] MEDS: SPIRONOLACTONE 25 MG TABLET PO (09:34)
[2023-01-27] MEDS: METOPROLOL SUCCINATE EXT REL 50 MG TABCR PO (09:34)
[2023-01-27] MEDS: EMPAGLIFLOZIN 10 MG TABLET PO (09:35)
[2023-01-27] MEDS: ACETAMINOPHEN 325 MG TABLET 650 MG PO (09:42)
--- NOTE | 2023-01-27 10:59 | PM.PNCARD ---
Progress Note: A&P Assessment and Plan (1) Acute on chronic diastolic heart failure: Code(s): I50.33 - Acute on chronic diastolic (congestive) heart failure Status: Acute Plan 73-year-old lady with clinical diagnosis of diastolic CHF also with some mitral regurgitation. She is improving clinically with intravenous furosemide. I would continue this at least for 1 more day since her chest does still demonstrate mild bibasilar rales. Hopefully transition to oral furosemide over the weekend. Grant Pérez MD [facility] Subjective Date/time seen: Date of service: 01/27/2023 Interval history: Follow-up visit in this 73-year-old lady with: Significant shortness of breath admitted is couple of days ago with air hunger and evidence of some pulmonary congestion. Patient is known to have diastolic dysfunction and at least moderate mitral valve regurgitation. She feels much better after about 48 hours of diuresis with furosemide. Still feels not quite back to baseline regarding her breathing. Because of her obesity she does have some chronic symptoms of MILLER at baseline. Exam Const: General: comfortable and no acute distress Other: Pleasant lady sitting in bedside chair visiting with daughter significantly obese HENMT: Mouth: Yes moist mucous membranes Eyes: Sclera: sclerae normal Neck: Neck: supple Other: Very difficult to assess JVD given her body habitus Resp: Effort & Inspection: normal respiratory effort Other: Scant bibasilar crackles are still audible no wheezing no rhonchi Cardio: Rate: regular rate Rhythm: regular rhythm Other: Very soft holosystolic apical murmur noted no gallop GI: GI Palp: Yes Soft to palpation Auscultation: normal bowel sounds Skin: General skin exam: normal color Neuro: Other: Alert and oriented x3 Extrem: Other: Obese, minimal pretibial edema remains Objective Data Vital Signs Vital Signs: Vital Signs - 24 hr 01/26/23 12:00 01/26/23 12:00 01/26/23 16:09 Temperature 36.1 C L 36.2 C L Pulse Rate 73 74 Respiratory Rate 20 22 H Blood Pressure 146/63 H 133/68 Pulse Oximetry 91 92 94 Oxygen Delivery Room Air Oxygen Flow Rate Fraction of Inspired Oxygen 01/26/23 16:00 01/26/23 12:00 01/26/23 14:00 Temperature Pulse Rate 80 68 Respiratory Rate Blood Pressure Pulse Oximetry 94 Oxygen Delivery Room Air Oxygen Flow Rate Fraction of Inspired Oxygen 01/26/23 16:00 01/26/23 18:00 01/26/23 20:00 Temperature 36.2 C L Pulse Rate 73 84 70 Respiratory Rate 16 Blood Pressure 154/72 H Pulse Oximetry 96 Oxygen Delivery Oxygen Flow Rate Fraction of Inspired Oxygen 01/26/23 21:14 01/26/23 21:15 01/27/23 00:00 Temperature 36.4 C L Pulse Rate 68 67 70 Respiratory Rate 18 21 H Blood Pressure 137/59 L Pulse Oximetry 97 98 95 Oxygen Delivery Nasal Cannula BiPAP Oxygen Flow Rate 2 Fraction of Inspired Oxygen 28 01/27/23 00:14 01/27/23 00:00 01/26/23 20:00 Temperature Pulse Rate 64 71 Respiratory Rate 19 Blood Pressure Pulse Oximetry 98 98 Oxygen Delivery BiPAP BiPAP Oxygen Flow Rate Fraction of Inspired Oxygen 01/26/23 22:00 01/27/23 00:00 01/27/23 02:47 Temperature Pulse Rate 64 59 L 60 Respiratory Rate 15 Blood Pressure Pulse Oximetry 97 Oxygen Delivery BiPAP Oxygen Flow Rate Fraction of Inspired Oxygen 01/27/23 04:00 01/27/23 04:00 01/27/23 02:00 Temperature 36.6 C Pulse Rate 96 62 Respiratory Rate 17 Blood Pressure 129/73 Pulse Oximetry 99 99 Oxygen Delivery BiPAP Oxygen Flow Rate Fraction of Inspired Oxygen 01/27/23 04:00 01/27/23 06:00 01/27/23 07:53 Temperature 36.0 C L Pulse Rate 55 L 58 L 67 Respiratory Rate 22 H Blood Pressure 146/81 H Pulse Oximetry 100 Oxygen Delivery Oxygen Flow Rate Fraction of Inspired Oxygen 01/27/23 09:34 Temper
[2023-01-27] MEDS: cefTRIAXone 2 GM/NS 100 ML 2 GM/100 ML BAG IVPB (11:07)
[2023-01-27 11:48] LABS: Glucose Point of Care 107 mg/dl (65-105)
--- NOTE | 2023-01-27 12:04 | ECG_ITS ---
Measurements Intervals [place] Rate: 138 P: [place]: 0 QRS: 50 QRSD: 92 T: 63 QT: 336 QTc: 511 Interpretive Statements ATRIAL FIBRILLATION WITH RAPID VENTRICULAR RESPONSE BORDERLINE ST-T WAVE ABNORMALITY- HIGH LATERAL LEADS BASELINE ARTIFACT- I, II, III, AVR, AVL, AVF ABNORMAL ECG COMPARED TO ECG 01/27/2023 06:54:39 ATRIAL FIBRILLATION NOW PRESENT PROLONGED QT INTERVAL NO LONGER PRESENT Electronically Signed On 01-27-2023 12:31:23 DIGITAL MEDIA STRATEGIST by Itz Griffin D.O.
[2023-01-27] MEDS: METOPROLOL TARTRATE INJ 5 MG/5 ML VIAL 2.5 MG IV PUSH (15:10)
--- NOTE | 2023-01-27 17:19 | PM.IMPN ---
Progress Note: A&P Assessment and Plan (1) Irritant contact dermatitis: Code(s): L24.9 - Irritant contact dermatitis, unspecified cause Status: Acute (2) Community acquired pneumonia: Code(s): J18.9 - Pneumonia, unspecified organism Status: Acute (3) Hypertension: Code(s): I10 - Essential (primary) hypertension Status: Acute (4) Acute on chronic diastolic heart failure: Code(s): I50.33 - Acute on chronic diastolic (congestive) heart failure Status: Acute Plan leukocytosis resolving. cont abx and plan to de escalate tomorrow had a fib rvr in 120's, responded to metoprolol, use prn metoprolol while she is being diuresed likely home tomorrow if no complications full code. Subjective Date/time seen: 01/27/23 17:19 Interval history: NAOE. pt has no complaints, denies chest pain or shortness of breath Review of Systems Review of Systems: All systems reviewed & are unremarkable except as noted in HPI and below Exam Const: General: comfortable and no acute distress Eyes: Pupils: Equal, round and reactive pupils present Neck: Neck: supple Resp: Effort & Inspection: normal respiratory effort Auscultation: crackles Cardio: Rate: tachycardic Rhythm: abnormal rhythm Heart sounds: no gallops, no murmurs and no rubs Extrem: General: no edema Objective Data Vital Signs Vital Signs: Vital Signs - 24 hr 01/26/23 18:00 01/26/23 20:00 01/26/23 21:14 Temperature 97.1 F L Pulse Rate 84 70 68 Respiratory Rate 16 Blood Pressure 154/72 H Pulse Oximetry 96 97 Oxygen Delivery Nasal Cannula Oxygen Flow Rate 2 Fraction of Inspired Oxygen 28 01/26/23 21:15 01/27/23 00:00 01/27/23 00:14 Temperature 97.5 F L Pulse Rate 67 70 64 Respiratory Rate 18 21 H 19 Blood Pressure 137/59 L Pulse Oximetry 98 95 98 Oxygen Delivery BiPAP BiPAP Oxygen Flow Rate Fraction of Inspired Oxygen 01/27/23 00:00 01/26/23 20:00 01/26/23 22:00 Temperature Pulse Rate 71 64 Respiratory Rate Blood Pressure Pulse Oximetry 98 Oxygen Delivery BiPAP Oxygen Flow Rate Fraction of Inspired Oxygen 01/27/23 00:00 01/27/23 02:47 01/27/23 04:00 Temperature 97.8 F Pulse Rate 59 L 60 96 Respiratory Rate 15 17 Blood Pressure 129/73 Pulse Oximetry 97 99 Oxygen Delivery BiPAP Oxygen Flow Rate Fraction of Inspired Oxygen 01/27/23 04:00 01/27/23 02:00 01/27/23 04:00 Temperature Pulse Rate 62 55 L Respiratory Rate Blood Pressure Pulse Oximetry 99 Oxygen Delivery BiPAP Oxygen Flow Rate Fraction of Inspired Oxygen 01/27/23 06:00 01/27/23 07:53 01/27/23 09:34 Temperature 96.8 F L Pulse Rate 58 L 67 116 H Respiratory Rate 22 H Blood Pressure 146/81 H Pulse Oximetry 100 Oxygen Delivery Oxygen Flow Rate Fraction of Inspired Oxygen 01/27/23 11:16 01/27/23 12:00 01/27/23 13:19 Temperature 97.2 F L 97.2 F L Pulse Rate 84 84 Respiratory Rate 22 H 22 H Blood Pressure 142/82 H 142/82 H Pulse Oximetry 99 99 96 Oxygen Delivery Nasal Cannula Oxygen Flow Rate 2 Fraction of Inspired Oxygen 01/27/23 15:10 01/27/23 15:44 Temperature 96.8 F L Pulse Rate 107 H 45 L Respiratory Rate 24 H Blood Pressure 114/67 Pulse Oximetry 94 Oxygen Delivery Oxygen Flow Rate Fraction of Inspired Oxygen Intake/Output Intake/Output: Intake & Output 01/24/23 01/25/23 01/26/23 01/27/23 23:59 23:59 23:59 23:59 Intake Total 350 1680 640 Output Total 1999 2049 1600 [id number] -[id number] -[id number] -673 Meds/Results Medications: Active Medications Generic Name Dose Route Start Last Admin Trade Name Freq PRN Reason Stop Dose Admin Acetaminophen 650 mg 01/25/23 19:07 01/27/23 09:42 Acetaminophen 325 Mg Tablet PO 650 mg Q4H PRN Administration Mild Pain (1-3) or Fever Dextrose 12.5 gm 01/25/23 17:40 Dextrose 50% 25 Gm/50 Ml Syringe IV PUSH PRN P
[2023-01-27 18:07] LABS: Glucose Point of Care 132 mg/dl (65-105)
[2023-01-27] MEDS: ROSUVASTATIN 20 MG TABLET PO (20:17)
[2023-01-27] MEDS: TELMISARTAN 40 MG TABLET PO (20:18)
[2023-01-27 20:47] LABS: Glucose Point of Care 136 mg/dl (65-105)
[2023-01-28] VITALS (22 sets, daily range): BP systolic 110–150; BP diastolic 67–93; PULSE 60–140; RESP 15–20; TEMP 36.1–36.6; O2SAT 91–98
[2023-01-28 05:16] LABS: Basophils Absolute Auto 0.1 K/mm3 (0.0-0.1); Basophils Percent Auto 0.6 % (0.2-1.2); Eosinophils Absolute Auto 0.2 K/mm3 (0-0.3); Eosinophils Percent Auto 1.2 % (0-4.4); Hematocrit 47.5 % (37.0-47.0); Hemoglobin 14.7 g/dL (12.0-15.0); Immature Granulocyte Absolute 0.05 K/mm3 (0.00-0.031); Immature Granulocyte Percent A 0.4 % (0-0.5); Lymphocytes Absolute Auto 2.38 K/mm3 (0.9-3.2); Mean Corpuscular HGB Conc 30.9 g/dl (32-36); Mean Corpuscular Hemoglobin 26.7 pg (26-34); Mean Corpuscular Volume 86.2 fl (80-100); Mean Platelet Volume 9.8 fl (7.4-10.4); Monocytes Absolute Auto 1.1 K/mm3 (0.1-0.6); Monocytes Percent Auto 8.5 % (2.6-8.5); Neutrophils Absolute Auto 8.8 K/mm3 (1.3-6.7); Neutrophils Percent Auto 70.3 % (45.5-73.1); Platelet Count Result 305 k/mm3 (150-375); Red Blood Count 5.51 M/mm3 (4.2-5.4); White Blood Count 12.5 K/mm3 (4.5-10.0)
[2023-01-28 05:28] LABS: Anion Gap 9 mmol/L (8-16); Blood Urea Nitrogen 28 mg/dL (7-17); Calcium 9.3 mg/dL (8.4-10.2); Carbon Dioxide 35 mmol/L (22-30); Chloride 94 mmol/L (98-107); Estimated CRCL calculation 46 ml/min; Estimated Glomerular Filt Rate 44; Glucose 125 mg/dL (65-110); Magnesium 2.4 mg/dL (1.6-2.3); Potassium 3.6 mmol/L (3.4-5.0); Sodium 138 mmol/L (137-145)
[2023-01-28 05:44] LABS: Procalcitonin 0.6 ng/mL
[2023-01-28 07:59] LABS: Glucose Point of Care 115 mg/dl (65-105)
[2023-01-28] MEDS: FUROSEMIDE INJ 40 MG/4 ML VIAL IV PUSH (08:41)
[2023-01-28] MEDS: HEPARIN SODIUM 5,000 UNITS/ML VIAL 5000 UNITS SUB-Q ×2 (08:41→22:00)
[2023-01-28] MEDS: POTASSIUM CHLORIDE 10 MEQ ER TABLET PO (08:42)
[2023-01-28] MEDS: SPIRONOLACTONE 25 MG TABLET PO (08:42)
[2023-01-28] MEDS: METOPROLOL SUCCINATE EXT REL 50 MG TABCR PO ×2 (08:42→11:39)
[2023-01-28] MEDS: EMPAGLIFLOZIN 10 MG TABLET PO (08:42)
--- NOTE | 2023-01-28 09:56 | PM.PNCARD ---
Progress Note: A&P Assessment and Plan (1) Acute on chronic diastolic heart failure: Code(s): I50.33 - Acute on chronic diastolic (congestive) heart failure Status: Acute Assessment and Plan: Patient presents with severe acute on chronic diastolic heart failure. Prob noncompliance +/- mitral regurgitation. --Wonder if we can DC BiPAP; no h/o FAISAL. Will DC and do apnea study. --Change furosemide to 20 mg po daily. --daily BMP --added Jardiance, spironolactone -- low-sodium diet --Check CXR (2) Atrial fibrillation, persistent: Code(s): I48.19 - Other persistent atrial fibrillation Status: Acute Assessment and Plan: New onset of atrial fibrillation yesterday. I believe this is a new diagnosis for the patient. This morning her heart rate is elevated. --check TSH --Increase daily metoprolol succ to 100 mg qd. --P.r.n. IV metoprolol --will consider starting sotalol, discussed with Dr. Thomas, he will DC the azithromycin --her EKG from yesterday suggested a QTC of 511 milliseconds. Difficult to evaluate due to rapid and irregular HR. I will repeat the EKG when off azithromycin and HR better prior to initiating any sotalol. --start anticoagulation with Xarelto 15 mg daily. (3) History of rectal bleeding: Code(s): Z87.19 - Personal history of other diseases of the digestive system Status: Acute Assessment and Plan: Patient notes some rectal bleeding on her toilet tissue after straining for bowel movement. Colonoscopy a couple years ago was unremarkable. Likely hemorrhoidal or related to local irritation. --daily MiraLax while on anticoagulant (4) Elevated troponin: Code(s): R79.89 - Other specified abnormal findings of blood chemistry Status: Acute Assessment and Plan: Her troponin is mildly elevated but I think this is more likely non ischemic myocardial injury rather than a non-STEMI, as there was no typical chest discomfort and her 2nd EKG is normal. --No further eval needed. (5) Hypertension: Code(s): I10 - Essential (primary) hypertension Status: Acute Assessment and Plan: Apparently not well controlled recently. Improved now. --continue metoprolol, telmisartan, spironolactone, furosemide (6) Lymphedema: Code(s): I89.0 - Lymphedema, not elsewhere classified Status: Acute Assessment and Plan: Chronic edema, with history of cellulitis, much improved. Subjective Date/time seen: 01/28/23 09:56 Interval history: Follow-up for acute on chronic diastolic CHF, possibly secondary to dietary noncompliance. In addition her echo showed moderate to moderately severe mitral regurgitation. Developed new a fib RVR 01/27/2023. Normally followed by chemical process engineer Dr. Deutsch at [facility]. 01/26/2023: Feeling better today.? Less short of breath. Continue IV Lasix 01/27/2023: She is improving clinically with intravenous furosemide.? I would continue this at least for 1 more day since her chest does still demonstrate mild bibasilar rales.? Hopefully transition to oral furosemide over the weekend. Date of service 01/28/2023: Patient went into atrial fib (new problem) yesterday, and this morning she has had rapid ventricular response with heart rate in the 130s. No palps but still a little MILLER w/ activity. Diuresed 2100 cc yesterday. Still on O2, w/ BiPAP at night. EKG 01/27/2023 at 12:09 p.m.: AFib RVR rate 138, QTc 511 Review of Systems Review of Systems: Still some MILLER when she is up to chair. Has not been walking any. Sore nose; bridge of nose irritated by BiPAP at night. No nausea. Chronic constipation, has some bright red blood per rectum at home on toilet tissue when straining. Try had a colonoscopy in the last couple of years. Exam Const: General: cooperative and comfortable; No healthy appearing or confusion Orientation/consciousness: oriented to person, patient oriented x3 and No
--- NOTE | 2023-01-28 10:16 | PCPTNOTE ---
Attempted PT eval. Per RN, HR too high to participate in therapy at this time. Will follow.
[2023-01-28] MEDS: polyethylene glycoL 3350 17 GM POWD.PACK PO (11:38)
[2023-01-28] MEDS: cefTRIAXone 2 GM/NS 100 ML 2 GM/100 ML BAG IVPB (11:39)
[2023-01-28 11:51] LABS: Glucose Point of Care 141 mg/dl (65-105)
--- NOTE | 2023-01-28 13:55 | ECG_ITS ---
Measurements Intervals [place] Rate: 127 P: CT: 0 QRS: 55 QRSD: 82 T: 86 QT: 342 QTc: 497 Interpretive Statements ATRIAL FIBRILLATION WITH RAPID VENTRICULAR RESPONSE BORDERLINE ST-T WAVE ABNORMALITY- LAT/HIGH LAT LEADS ABNORMAL ECG COMPARED TO ECG 01/27/2023 12:09:38 NO SIGNIFICANT CHANGES Electronically Signed On 01-28-2023 16:28:44 BRIDGE ENGINEER by Itz Griffin D.O.
[2023-01-28] MEDS: METOPROLOL TARTRATE INJ 5 MG/5 ML VIAL IV PUSH ×2 (14:19→22:03)
--- NOTE | 2023-01-28 14:57 | PCOTNOTE ---
Attempted OT evaluation. Per RN, HR too high to participate in therapy at this time.
--- NOTE | 2023-01-28 15:02 | PM.IMPN ---
Progress Note: A&P Assessment and Plan (1) Atrial fibrillation, persistent: Code(s): I48.19 - Other persistent atrial fibrillation Status: Acute (2) Community acquired pneumonia: Code(s): J18.9 - Pneumonia, unspecified organism Status: Acute (3) Irritant contact dermatitis: Code(s): L24.9 - Irritant contact dermatitis, unspecified cause Status: Acute (4) Lymphedema: Code(s): I89.0 - Lymphedema, not elsewhere classified Status: Acute Plan CHF resolved. however new onset a fib not yet controlled. cardiology managing, wanting to start sotalol in addition to having increased metoprolol. white count is downtrending, will d/c azithromycin and zofran. pending EKG recheck for QTC. we'll continue ceftriaxone for the total 5 days still. acute hypoxic respiratory failure, treat CHF and abx for pneumonia. i was able to wean it down from 2 to 1 L while in the room. educated on disease processes of CHF , a fib, obesity, DM and advised diet and lifestyle modifications to which she and her 2 daughters understood and agreed to. FEN: cardiac diabetic diet GI prophylaxis: not indicated DVT prophylaxis: xarelto 15mg daily Lines: pIV Code Status: full code Dispo: pending home after heart rate control More than 35 minutes spent on chart review, patient interaction and assessment and plan. Subjective Date/time seen: 01/28/23 15:02 Interval history: NAOE. pt felt congested when she had to take deep breathes but otherwise has no issues. she feels her LE edema is pretty much gone. she denies chest pain. she reports she had rash with abx as a child but more recently took a penicillin and did fine with it Review of Systems Review of Systems: All systems reviewed & are unremarkable except as noted in HPI and below Exam Const: General: comfortable and no acute distress Other: obese Eyes: Pupils: Equal, round and reactive pupils present Neck: Neck: supple Resp: Effort & Inspection: normal respiratory effort Auscultation: clear to auscultation bilaterally Cardio: Rate: tachycardic Rhythm: abnormal rhythm Heart sounds: no gallops, no murmurs and no rubs GI: GI Palp: Yes Soft to palpation and No Tenderness to palpation present (GI) Extrem: General: no edema Objective Data Vital Signs Vital Signs: Vital Signs - 24 hr 11/17/23 15:10 01/27/23 15:44 01/27/23 16:00 Temperature 96.8 F L Pulse Rate 107 H 45 L 110 H Respiratory Rate 24 H Blood Pressure 114/67 Pulse Oximetry 94 Oxygen Delivery Oxygen Flow Rate Fraction of Inspired Oxygen 01/27/23 18:00 01/27/23 16:00 01/27/23 19:48 Temperature 97.1 F L Pulse Rate 96 109 H Respiratory Rate 16 Blood Pressure 135/78 Pulse Oximetry 93 Oxygen Delivery Room Air Oxygen Flow Rate Fraction of Inspired Oxygen 01/27/23 20:46 01/27/23 23:00 01/27/23 23:49 Temperature 97.6 F Pulse Rate 69 114 H Respiratory Rate 16 19 Blood Pressure 111/74 Pulse Oximetry 97 98 98 Oxygen Delivery Nasal Cannula BiPAP Oxygen Flow Rate 2 Fraction of Inspired Oxygen 01/27/23 20:00 01/27/23 20:00 01/27/23 22:00 Temperature Pulse Rate 107 H 109 H 114 H Respiratory Rate 16 Blood Pressure Pulse Oximetry 93 Oxygen Delivery Nasal Cannula Oxygen Flow Rate 2 Fraction of Inspired Oxygen 01/28/23 00:00 01/28/23 00:00 01/28/23 01:44 Temperature Pulse Rate 114 H 108 H 98 Respiratory Rate 19 Blood Pressure Pulse Oximetry 98 Oxygen Delivery BiPAP Oxygen Flow Rate Fraction of Inspired Oxygen 30 01/28/23 02:58 01/28/23 04:00 01/28/23 04:00 Temperature 97.4 F L Pulse Rate 66 113 H 113 H Respiratory Rate 19 15 15 Blood Pressure 150/93 H Pulse Oximetry 98 93 93 Oxygen Delivery BiPAP BiPAP Oxygen Flow Rate Fraction of Inspired Oxygen 30 01/28/23 04:00 01/28/23 05:22 01/28/23 08:00 Temperature 97.7 F Pulse Rate 106 H 99 101 H Respirat
[2023-01-28 16:31] LABS: Glucose Point of Care 130 mg/dl (65-105)
[2023-01-28] MEDS: RIVAROXABAN 15 MG TABLET PO (17:21)
[2023-01-28 20:54] LABS: Glucose Point of Care 146 mg/dl (65-105)
[2023-01-28] MEDS: ROSUVASTATIN 20 MG TABLET PO (22:02)
[2023-01-28] MEDS: TELMISARTAN 40 MG TABLET PO (22:02)
[2023-01-29] VITALS (17 sets, daily range): BP systolic 105–141; BP diastolic 55–86; PULSE 52–130; RESP 16–20; TEMP 36.1–36.7; O2SAT 91–98
[2023-01-29 05:44] LABS: Basophils Absolute Auto 0.1 K/mm3 (0.0-0.1); Basophils Percent Auto 0.8 % (0.2-1.2); Eosinophils Absolute Auto 0.3 K/mm3 (0-0.3); Eosinophils Percent Auto 2.2 % (0-4.4); Hematocrit 48.7 % (37.0-47.0); Hemoglobin 15.3 g/dL (12.0-15.0); Immature Granulocyte Absolute 0.07 K/mm3 (0.00-0.031); Immature Granulocyte Percent A 0.6 % (0-0.5); Lymphocytes Absolute Auto 2.52 K/mm3 (0.9-3.2); Lymphocytes Percent Auto 21.2 % (18.3-44.2); Mean Corpuscular HGB Conc 31.4 g/dl (32-36); Mean Corpuscular Hemoglobin 26.8 pg (26-34); Mean Corpuscular Volume 85.4 fl (80-100); Mean Platelet Volume 9.6 fl (7.4-10.4); Monocytes Percent Auto 8.8 % (2.6-8.5); Neutrophils Absolute Auto 7.9 K/mm3 (1.3-6.7); Neutrophils Percent Auto 66.4 % (45.5-73.1); Platelet Count Result 332 k/mm3 (150-375); Red Cell Distribution Width 14.8 % (11.5-14.5); White Blood Count 11.9 K/mm3 (4.5-10.0)
[2023-01-29 06:28] LABS: Anion Gap 9 mmol/L (8-16); Blood Urea Nitrogen 25 mg/dL (7-17); Calcium 9.9 mg/dL (8.4-10.2); Carbon Dioxide 33 mmol/L (22-30); Chloride 97 mmol/L (98-107); Estimated CRCL calculation 50 ml/min; Estimated Glomerular Filt Rate 49; Glucose 114 mg/dL (65-110); Magnesium 2.4 mg/dL (1.6-2.3); Potassium 4.2 mmol/L (3.4-5.0); Sodium 139 mmol/L (137-145)
[2023-01-29 06:34] LABS: Procalcitonin 0.3 ng/mL
--- NOTE | 2023-01-29 08:00 | ECG_ITS ---
Measurements Intervals [place] Rate: 116 P: [place]: 0 QRS: 52 QRSD: 98 T: 63 QT: 328 QTc: 456 Interpretive Statements ATRIAL FIBRILLATION WITH RAPID VENTRICULAR RESPONSE BORDERLINE T WAVE ABNORMALITY- ANTERIOR LEADS BASELINE ARTIFACT- I, II, III, AVR, AVL, AVF, V1-V3 ABNORMAL ECG COMPARED TO ECG 01/28/2023 14:23:08 NO SIGNIFICANT CHANGES Electronically Signed On 01-29-2023 8:11:14 SALESPERSON HEARING AIDS by Itz Griffin D.O.
--- NOTE | 2023-01-29 08:05 | PCPTNOTE ---
Attempted to see for physical therapy evaluation, per RN Roxie pts resting HR is 128 and she should not be seen at this time.
--- NOTE | 2023-01-29 08:06 | PCOTNOTE ---
Attempted OT evaluation. Per RN, HR too high to participate in therapy at this time. Will follow.
[2023-01-29 08:37] LABS: Glucose Point of Care 132 mg/dl (65-105)
[2023-01-29] MEDS: METOPROLOL SUCCINATE EXT REL 100 MG TABCR PO (09:10)
[2023-01-29] MEDS: FUROSEMIDE 20 MG TABLET PO (09:11)
[2023-01-29] MEDS: EMPAGLIFLOZIN 10 MG TABLET PO (09:11)
[2023-01-29] MEDS: polyethylene glycoL 3350 17 GM POWD.PACK PO (09:11)
[2023-01-29] MEDS: HEPARIN SODIUM 5,000 UNITS/ML VIAL 5000 UNITS SUB-Q ×2 (09:11→20:25)
[2023-01-29] MEDS: SPIRONOLACTONE 25 MG TABLET PO (09:11)
[2023-01-29 12:23] LABS: Glucose Point of Care 137 mg/dl (65-105)
--- NOTE | 2023-01-29 12:23 | PM.PNCARD ---
Progress Note: A&P Assessment and Plan (1) Acute on chronic diastolic heart failure: Code(s): I50.33 - Acute on chronic diastolic (congestive) heart failure Status: Acute Assessment and Plan: Patient presents with severe acute on chronic diastolic heart failure. Prob dietary noncompliance +/- mitral regurgitation. Acute CHF resolved. --Cont furosemide to 20 mg po daily. --daily BMP --added Jardiance, spironolactone -- low-sodium diet --Encouraging pt to be out of bed and ambulate. (2) Atrial fibrillation, persistent: Code(s): I48.19 - Other persistent atrial fibrillation Status: Acute Assessment and Plan: New onset of atrial fibrillation 01/27/2023, a new diagnosis for the patient. Heart rate is still elevated after increasing the metoprolol. --Increased daily metoprolol succ to 100 mg qd. --P.r.n. IV metoprolol --Starting sotalol, since off azithromycin and QTc acceptable. --started anticoagulation with Xarelto 15 mg daily. --follow-up for sotalol toxicity/pr rhythmic effect with routine EKG monitoring and continue telemetry --may need to consider cardioversion prior to discharge if she does not convert with sotalol. (3) Mitral regurgitation: Code(s): I34.0 - Nonrheumatic mitral (valve) insufficiency Status: Acute Assessment and Plan: Moderate to severe mitral regurgitation noted on echo. Murmur not impressive but may need follow-up. (4) History of rectal bleeding: Code(s): Z87.19 - Personal history of other diseases of the digestive system Status: Acute Assessment and Plan: Patient notes some rectal bleeding on her toilet tissue after straining for bowel movement. Colonoscopy a couple years ago was unremarkable. Likely hemorrhoidal or related to local irritation. --daily MiraLax while on anticoagulant (5) Elevated troponin: Code(s): R79.89 - Other specified abnormal findings of blood chemistry Status: Acute Assessment and Plan: Her troponin is mildly elevated but I think this is more likely non ischemic myocardial injury rather than a non-STEMI, as there was no typical chest discomfort and her 2nd EKG is normal. --No further eval needed. (6) Hypertension: Code(s): I10 - Essential (primary) hypertension Status: Acute Assessment and Plan: Apparently not well controlled recently. Improved now. --continue metoprolol, telmisartan, spironolactone, furosemide (7) Lymphedema: Code(s): I89.0 - Lymphedema, not elsewhere classified Status: Acute Assessment and Plan: Chronic edema, with history of cellulitis, much improved. Subjective Date/time seen: 01/29/23 12:23 Interval history: Follow-up for acute on chronic diastolic CHF, possibly secondary to dietary noncompliance vs MR. Her echo showed moderate to moderately severe mitral regurgitation. Developed new a fib RVR 01/27/2023, started on soltalol 01/29/2023. Normally followed by patient service rep Dr. Deutsch at [facility], though said she may wish to FU w/ our group. 01/26/2023: Feeling better today.? Less short of breath. Continue IV Lasix 01/27/2023: She is improving clinically with intravenous furosemide.? I would continue this at least for 1 more day since her chest does still demonstrate mild bibasilar rales.? Hopefully transition to oral furosemide over the weekend. Date of service 01/28/2023: Patient went into atrial fib (new problem) yesterday, and this morning she has had rapid ventricular response with heart rate in the 130s. No palps but still a little MILLER w/ activity. Diuresed 2100 cc yesterday. Still on O2, w/ BiPAP at night. I considered starting pt on sotalol but QTC prolonged (fr azithromycin?); increased metoprolol to 100 mg qd. Azithromycin and Zofran DC. Date of service 01/29/2023: No SOB at rest. Intermittently on O2. NO CPAP last night. Not out of bed much at all. Daughter Noelle at bedside. TSH was nor
[2023-01-29] MEDS: cefTRIAXone 2 GM/NS 100 ML 2 GM/100 ML BAG IVPB (14:02)
[2023-01-29] MEDS: SOTALOL HCL 80 MG TABLET PO ×2 (14:04→20:26)
--- NOTE | 2023-01-29 16:10 | ECG_ITS ---
Measurements Intervals [place] Rate: 96 P: [place]: 0 QRS: 44 QRSD: 100 T: 51 QT: 392 QTc: 497 Interpretive Statements ATRIAL FIBRILLATION BASELINE ARTIFACT- I, III, AVR, AVL, AVF, V1-V2, V6 ABNORMAL ECG COMPARED TO ECG 01/29/2023 08:01:24 HEART RATE HAS DECREASED Electronically Signed On 01-30-2023 6:16:53 PRESIDENT AND CHIEF COMMERCIAL OFFICER by Itz Griffin D.O.
--- NOTE | 2023-01-29 16:15 | ECG_ITS ---
Measurements Intervals [place] Rate: 110 P: -86 DC: 126 QRS: 48 QRSD: 95 T: 68 QT: 381 QTc: 517 Interpretive Statements ATRIAL FIBRILLATION WITH RAPID VENTRICULAR RESPONSE BORDERLINE ST-T WAVE ABNORMALITY- ANTERIOR LEADS BASELINE ARTIFACT- I, III, AVR, AVL, AVF ABNORMAL ECG COMPARED TO ECG 01/29/2023 08:01:24 NO SIGNIFICANT CHANGES Electronically Signed On 01-30-2023 9:44:07 FILTERING MACHINE TENDER HELPER by Itz Griffin D.O.
[2023-01-29 16:39] LABS: Glucose Point of Care 173 mg/dl (65-105)
[2023-01-29] MEDS: RIVAROXABAN 15 MG TABLET PO (18:25)
--- NOTE | 2023-01-29 19:51 | PM.IMPN ---
Progress Note: A&P Assessment and Plan (1) Atrial fibrillation, persistent: Code(s): I48.19 - Other persistent atrial fibrillation Status: Acute (2) Community acquired pneumonia: Code(s): J18.9 - Pneumonia, unspecified organism Status: Acute Plan wbc trending down. cont ceftriaxone plan to de escalate. HR now trending in 90-100's. discharge when rate/rhythm is adequately controlled with cardiology. ARF resolved. full code. Subjective Date/time seen: 01/29/23 19:51 Interval history: naoe. pt denies shortness of breath. while in room was able to take off NC and she saturated 96% o2. she denies chest pain as well. no cough Review of Systems Review of Systems: All systems reviewed & are unremarkable except as noted in HPI and below Exam Const: General: comfortable Eyes: Pupils: Equal, round and reactive pupils present Neck: Neck: supple Resp: Effort & Inspection: normal respiratory effort Auscultation: clear to auscultation bilaterally and no crackles Cardio: Rate: regular rate Rhythm: abnormal rhythm Heart sounds: no gallops, no murmurs and no rubs GI: GI Palp: Yes Soft to palpation Extrem: Other: chronic stasis hyperpigmentation. edema improved. Objective Data Vital Signs Vital Signs: Vital Signs - 24 hr 01/28/23 22:03 01/28/23 20:00 01/28/23 20:00 Temperature Pulse Rate 122 H 113 H 109 H Respiratory Rate 16 Blood Pressure Pulse Oximetry 97 Oxygen Delivery Nasal Cannula Oxygen Flow Rate 1 01/28/23 22:00 01/28/23 22:55 01/28/23 23:45 Temperature 97 F L Pulse Rate 110 H 110 H Respiratory Rate 18 Blood Pressure 118/80 Pulse Oximetry 96 97 Oxygen Delivery Nasal Cannula Oxygen Flow Rate 1 01/28/23 23:48 01/29/23 00:00 01/29/23 02:00 Temperature Pulse Rate 110 H 112 H 100 Respiratory Rate 18 Blood Pressure Pulse Oximetry 97 Oxygen Delivery Nasal Cannula Oxygen Flow Rate 1 01/29/23 04:00 01/29/23 04:00 01/29/23 04:00 Temperature 96.9 F L Pulse Rate 97 114 H 114 H Respiratory Rate 18 18 Blood Pressure 141/85 H Pulse Oximetry 95 95 Oxygen Delivery Room Air Oxygen Flow Rate 01/29/23 05:50 01/29/23 08:00 01/29/23 09:10 Temperature 97.7 F Pulse Rate 101 H 52 L 130 H Respiratory Rate 20 Blood Pressure 132/55 L Pulse Oximetry 96 Oxygen Delivery Oxygen Flow Rate 01/29/23 12:00 01/29/23 14:04 01/29/23 08:00 Temperature 97.5 F L Pulse Rate 114 H 110 H 122 H Respiratory Rate 20 Blood Pressure 105/75 Pulse Oximetry 96 Oxygen Delivery Oxygen Flow Rate 01/29/23 10:00 01/29/23 12:00 01/29/23 14:00 Temperature Pulse Rate 108 H 108 H 101 H Respiratory Rate Blood Pressure Pulse Oximetry Oxygen Delivery Oxygen Flow Rate 01/29/23 16:00 01/29/23 08:00 01/29/23 12:00 Temperature Pulse Rate 107 H Respiratory Rate Blood Pressure Pulse Oximetry Oxygen Delivery Room Air Room Air Oxygen Flow Rate 01/29/23 16:00 01/29/23 16:00 01/29/23 18:00 Temperature 98.1 F Pulse Rate 62 86 Respiratory Rate 16 Blood Pressure 127/76 Pulse Oximetry 95 Oxygen Delivery Room Air Oxygen Flow Rate Intake/Output Intake/Output: Intake & Output 01/26/23 01/27/23 01/28/23 01/29/23 23:59 23:59 23:59 23:59 Intake Total 1680 1840 1810 930 Output Total 2050 3900 1300 1200 Balance -370 -2060 510 -270 Meds/Results Medications: Active Medications Generic Name Dose Route Start Last Admin Trade Name Freq PRN Reason Stop Dose Admin Acetaminophen 650 mg 01/25/23 19:07 01/27/23 09:42 Acetaminophen 325 Mg Tablet PO 650 mg Q4H PRN Administration Mild Pain (1-3) or Fever Dextrose 12.5 gm 01/25/23 17:40 Dextrose 50% 25 Gm/50 Ml Syringe IV PUSH PRN PRN Hypoglycemia Protocol Empagliflozin 10 mg 01/26/23 09:00 01/29/23 09:11 Empagliflozin 10 Mg Tablet PO 10 mg HILLARY
[2023-01-29] MEDS: ROSUVASTATIN 20 MG TABLET PO (20:26)
[2023-01-29] MEDS: TELMISARTAN 40 MG TABLET PO (20:26)
[2023-01-29 20:30] LABS: Glucose Point of Care 130 mg/dl (65-105)
[2023-01-30] VITALS (20 sets, daily range): BP systolic 106–151; BP diastolic 50–80; PULSE 55–64; RESP 18–22; TEMP 36.1–36.5; O2SAT 91–99
[2023-01-30 05:15] LABS: Basophils Absolute Auto 0.1 K/mm3 (0.0-0.1); Basophils Percent Auto 0.8 % (0.2-1.2); Eosinophils Absolute Auto 0.4 K/mm3 (0-0.3); Eosinophils Percent Auto 2.6 % (0-4.4); Hematocrit 46.3 % (37.0-47.0); Hemoglobin 14.4 g/dL (12.0-15.0); Immature Granulocyte Absolute 0.11 K/mm3 (0.00-0.031); Immature Granulocyte Percent A 0.8 % (0-0.5); Lymphocytes Absolute Auto 2.27 K/mm3 (0.9-3.2); Lymphocytes Percent Auto 15.9 % (18.3-44.2); Mean Corpuscular HGB Conc 31.1 g/dl (32-36); Mean Corpuscular Hemoglobin 26.7 pg (26-34); Mean Corpuscular Volume 85.7 fl (80-100); Mean Platelet Volume 9.5 fl (7.4-10.4); Monocytes Absolute Auto 1.2 K/mm3 (0.1-0.6); Monocytes Percent Auto 8.5 % (2.6-8.5); Neutrophils Absolute Auto 10.2 K/mm3 (1.3-6.7); Neutrophils Percent Auto 71.4 % (45.5-73.1); Platelet Count Result 328 k/mm3 (150-375); White Blood Count 14.3 K/mm3 (4.5-10.0)
[2023-01-30 05:45] LABS: Anion Gap 10 mmol/L (8-16); Blood Urea Nitrogen 22 mg/dL (7-17); Calcium 9.3 mg/dL (8.4-10.2); Carbon Dioxide 29 mmol/L (22-30); Chloride 97 mmol/L (98-107); Estimated CRCL calculation 55 ml/min; Estimated Glomerular Filt Rate 55; Glucose 125 mg/dL (65-110); Potassium 3.9 mmol/L (3.4-5.0); Sodium 136 mmol/L (137-145)
[2023-01-30 08:32] LABS: Glucose Point of Care 109 mg/dl (65-105)
--- NOTE | 2023-01-30 08:54 | PM.PNCARD ---
Progress Note: A&P Assessment and Plan (1) Acute on chronic diastolic heart failure: Code(s): I50.33 - Acute on chronic diastolic (congestive) heart failure Status: Acute Assessment and Plan: Patient presents with severe acute on chronic diastolic heart failure. Prob dietary noncompliance +/- mitral regurgitation. Acute CHF resolved. --Cont furosemide to 20 mg po daily. --daily BMP --Continue Jardiance, spironolactone --low-sodium diet --Encouraging pt to be out of bed and ambulate. (2) Atrial fibrillation, persistent: Code(s): I48.19 - Other persistent atrial fibrillation Status: Acute Assessment and Plan: New onset of atrial fibrillation 01/27/2023, a new diagnosis for the patient. Converted to NSR yesterday. --Has been started on sotalol, converted to NSR last night, now sinus rhythm in 60's --Third dose sotalol 01/30 a.m. Will decrease sotalol to 40mg b.i.d. because of QT prolongation (mild, QTc 497ms) --will decrease metoprolol succ to 50mg daily --started anticoagulation with Xarelto 15 mg daily. --follow-up for sotalol toxicity/pr rhythmic effect with routine EKG monitoring --Daily BMP and magnesium while sotalol loading --continue telemetry (3) Mitral regurgitation: Code(s): I34.0 - Nonrheumatic mitral (valve) insufficiency Status: Acute Assessment and Plan: Moderate to severe mitral regurgitation noted on echo. Murmur not impressive but may need follow-up. (4) History of rectal bleeding: Code(s): Z87.19 - Personal history of other diseases of the digestive system Status: Acute Assessment and Plan: Patient notes some rectal bleeding on her toilet tissue after straining for bowel movement. Colonoscopy a couple years ago was unremarkable. Likely hemorrhoidal or related to local irritation. --daily MiraLax while on anticoagulant (5) Elevated troponin: Code(s): R79.89 - Other specified abnormal findings of blood chemistry Status: Acute Assessment and Plan: Her troponin is mildly elevated but I think this is more likely non ischemic myocardial injury rather than a non-STEMI, as there was no typical chest discomfort and her 2nd EKG is normal. --No further eval needed. (6) Hypertension: Code(s): I10 - Essential (primary) hypertension Status: Acute Assessment and Plan: Apparently not well controlled recently. Improved now. --continue metoprolol, telmisartan, spironolactone, furosemide (7) Lymphedema: Code(s): I89.0 - Lymphedema, not elsewhere classified Status: Acute Assessment and Plan: Chronic edema, with history of cellulitis, much improved. Subjective Date/time seen: 01/30/23 08:54 Interval history: Follow-up for acute on chronic diastolic CHF, possibly secondary to dietary noncompliance vs MR. Her echo showed moderate to moderately severe mitral regurgitation. Developed new a fib RVR 01/27/2023, started on soltalol 01/29/2023. Normally followed by jingle writer Dr. Deutsch at [facility], though said she may wish to FU w/ our group. 01/26/2023: Feeling better today.? Less short of breath. Continue IV Lasix 01/27/2023: She is improving clinically with intravenous furosemide.? I would continue this at least for 1 more day since her chest does still demonstrate mild bibasilar rales.? Hopefully transition to oral furosemide over the weekend. Date of service 01/28/2023: Patient went into atrial fib (new problem) yesterday, and this morning she has had rapid ventricular response with heart rate in the 130s. No palps but still a little MILLER w/ activity. Diuresed 2100 cc yesterday. Still on O2, w/ BiPAP at night. I considered starting pt on sotalol but QTC prolonged (fr azithromycin?); increased metoprolol to 100 mg qd. Azithromycin and Zofran DC. Date of service 01/29/2023: No SOB at rest. Intermittently on O2. NO CPAP last night. Not out of bed much at all. Daughter Chr
[2023-01-30] MEDS: SOTALOL HCL 80 MG TABLET PO (08:58)
[2023-01-30] MEDS: SPIRONOLACTONE 25 MG TABLET PO (08:59)
[2023-01-30] MEDS: FUROSEMIDE 20 MG TABLET PO (08:59)
[2023-01-30] MEDS: EMPAGLIFLOZIN 10 MG TABLET PO (08:59)
[2023-01-30] MEDS: polyethylene glycoL 3350 17 GM POWD.PACK PO (08:59)
[2023-01-30] MEDS: HEPARIN SODIUM 5,000 UNITS/ML VIAL 5000 UNITS SUB-Q ×2 (09:00→21:31)
[2023-01-30 09:35] LABS: Magnesium 2.5 mg/dL (1.6-2.3)
--- NOTE | 2023-01-30 09:44 | PM.IMPN ---
Progress Note: A&P Assessment and Plan (1) Mitral regurgitation: Code(s): I34.0 - Nonrheumatic mitral (valve) insufficiency Status: Acute (2) History of rectal bleeding: Code(s): Z87.19 - Personal history of other diseases of the digestive system Status: Acute (3) Atrial fibrillation, persistent: Code(s): I48.19 - Other persistent atrial fibrillation Status: Acute (4) Community acquired pneumonia: Code(s): J18.9 - Pneumonia, unspecified organism Status: Acute (5) Irritant contact dermatitis: Code(s): L24.9 - Irritant contact dermatitis, unspecified cause Status: Acute (6) Elevated troponin: Code(s): R79.89 - Other specified abnormal findings of blood chemistry Status: Acute (7) Lymphedema: Code(s): I89.0 - Lymphedema, not elsewhere classified Status: Acute (8) Diabetes: Code(s): E11.9 - Type 2 diabetes mellitus without complications Status: Acute (9) Hypertension: Code(s): I10 - Essential (primary) hypertension Status: Acute (10) Acute on chronic diastolic heart failure: Code(s): I50.33 - Acute on chronic diastolic (congestive) heart failure Status: Acute (11) Hypoxemia requiring supplemental oxygen: Code(s): R09.02 - Hypoxemia; Z99.81 - Dependence on supplemental oxygen Status: Acute Plan 73F w/ [facility] HFpEF, NIDDM, HLD, HTN, lymphedema presents with shortness of breath. Admitted on 01/25 for acutely decompensated heart failure. 1) acute decompensated HFpEF - echo 01/25 - EF 55-60% with grade 2 diastolic dysfunction, mod-severe mitral regurgitation (needs follow up) - resolved. cont daily weights, fluid restriction - cont lasix 20mg po daily, jardiance, spironolactone 2) irritant contact dermatitis - 2/2 to excessive use of triple abx ointment. focal areas of erythema now resolved, still with erythema more diffusely related to stasis 3) acute hypoxic respiratory failure - unable to wean o2 in spite of CHF resolving. on admission possible pna on x ray, althrough repeat on 01/28 did not reveal that. she has had dry cough for many years. - ceftriaxone and azithromycin started 01/26. azithromycin dc'ed 01/28 for elevated qtc. cont ceftriaxone, ordered CTA chest. wbc elevated again on 01/30 as well. check procalcitonin 4) a fib w/ RVR - new, discovered while inpatient - sotalol started with EKG checks for QTC. will have 5th dose 01/30 in am. rate now controlled. defer to cardiology for futher mgmt, including toprol dosing - started on xarelto 15mg po qday 5) hx of HTN - controlled. cont telmisartan, lasix, sotalol and toprol 6) NIDDM - cont jardiance. sugars well controlled. accuchecks achs and iss FEN: fluid restriction 1800cc/day. cardiac diabetic diet. saline lock IV GI prophylaxis: not indicated DVT prophylaxis: xarelto Lines: pIV Code Status: Full Code Dispo: stable More than 35 minutes spent on chart review, patient interaction and assessment and plan. Subjective Date/time seen: 01/30/23 09:44 Interval history: NAOE. pt still does not complain of shortness of breath. she again endorses a dry cough she has had for many years which she thought to be due to her blood pressure medication. Review of Systems Review of Systems: All systems reviewed & are unremarkable except as noted in HPI and below Exam Const: General: comfortable and no acute distress Eyes: Pupils: Equal, round and reactive pupils present Neck: Neck: supple Resp: Effort & Inspection: normal respiratory effort Auscultation: clear to auscultation bilaterally Cardio: Rate: regular rate Rhythm: regular rhythm Heart sounds: no gallops, no murmurs and no rubs GI: GI Palp: Yes Soft to palpation and No Tenderness to palpation present (GI) Extrem: General: no edema Objective Data Vital Signs Vital Signs: Vital Signs - 24 hr 01/29/23 12:00 01/29/23 14:04 01/29/23 10:00 Temperature 97.5 F
--- NOTE | 2023-01-30 10:00 | ECG_ITS ---
Measurements Intervals [place] Rate: 58 P: 57 [place]: 134 QRS: 47 QRSD: 88 T: 56 QT: 506 QTc: 497 Interpretive Statements SINUS BRADYCARDIA PROLONGED QT INTERVAL BASELINE ARTIFACT- I, II, III, AVR ABNORMAL ECG COMPARED TO ECG 01/29/2023 21:34:19 SINUS BRADYCARDIA NOW PRESENT PROLONGED QT INTERVAL NOW PRESENT Electronically Signed On 01-30-2023 10:33:07 PIPE FINISHING SUPERVISOR by Itz Griffin D.O.
[2023-01-30] MEDS: cefTRIAXone 2 GM/NS 100 ML 2 GM/100 ML BAG IVPB (11:55)
[2023-01-30] MEDS: predniSONE 40 MG, predniSONE 10 MG 50 MG PO ×2 (11:55→18:04)
[2023-01-30 12:17] LABS: Glucose Point of Care 123 mg/dl (65-105)
[2023-01-30 16:29] LABS: Glucose Point of Care 130 mg/dl (65-105)
[2023-01-30] MEDS: RIVAROXABAN 15 MG TABLET PO (18:04)
[2023-01-30 20:23] LABS: Glucose Point of Care 181 mg/dl (65-105)
[2023-01-30] MEDS: TELMISARTAN 40 MG TABLET PO (21:31)
[2023-01-30] MEDS: ROSUVASTATIN 20 MG TABLET PO (21:32)
[2023-01-30] MEDS: SOTALOL HCL 40 MG TABLET PO (21:32)
--- NOTE | 2023-01-30 22:00 | ECG_ITS ---
Measurements Intervals [place] Rate: 58 P: 64 [place]: 145 QRS: 47 QRSD: 85 T: 52 QT: 509 QTc: 501 Interpretive Statements SINUS BRADYCARDIA PROLONGED QT INTERVAL BASELINE ARTIFACT- I, II, AVR, AVL, V1, V3-V4 ABNORMAL ECG COMPARED TO ECG 01/30/2023 10:24:54 NO SIGNIFICANT CHANGES Electronically Signed On 01-31-2023 6:18:56 ROTARY CUTTER by Itz Griffin D.O.
[2023-01-31] VITALS (15 sets, daily range): BP systolic 115–137; BP diastolic 53–65; PULSE 57–66; RESP 20–22; TEMP 36.1–36.5; O2SAT 92–98
[2023-01-31] MEDS: diphenhydrAMINE HCl CAP 25 MG CAPSULE 50 MG PO (00:10)
[2023-01-31] MEDS: predniSONE 40 MG, predniSONE 10 MG 50 MG PO (00:10)
[2023-01-31 05:20] LABS: Basophils Percent Auto 0.2 % (0.2-1.2); Eosinophils Percent Auto 0.1 % (0-4.4); Hematocrit 45.8 % (37.0-47.0); Hemoglobin 14.3 g/dL (12.0-15.0); Immature Granulocyte Absolute 0.09 K/mm3 (0.00-0.031); Immature Granulocyte Percent A 0.7 % (0-0.5); Lymphocytes Absolute Auto 0.62 K/mm3 (0.9-3.2); Lymphocytes Percent Auto 4.7 % (18.3-44.2); Mean Corpuscular HGB Conc 31.2 g/dl (32-36); Mean Corpuscular Hemoglobin 26.3 pg (26-34); Mean Corpuscular Volume 84.3 fl (80-100); Mean Platelet Volume 9.8 fl (7.4-10.4); Monocytes Absolute Auto 0.1 K/mm3 (0.1-0.6); Neutrophils Absolute Auto 12.5 K/mm3 (1.3-6.7); Neutrophils Percent Auto 93.3 % (45.5-73.1); Platelet Count Result 290 k/mm3 (150-375); Red Blood Count 5.43 M/mm3 (4.2-5.4); Red Cell Distribution Width 14.6 % (11.5-14.5); White Blood Count 13.3 K/mm3 (4.5-10.0)
[2023-01-31 05:42] LABS: Anion Gap 11 mmol/L (8-16); Blood Urea Nitrogen 26 mg/dL (7-17); Calcium 9.5 mg/dL (8.4-10.2); Carbon Dioxide 28 mmol/L (22-30); Chloride 97 mmol/L (98-107); Estimated CRCL calculation 51 ml/min; Estimated Glomerular Filt Rate 49; Glucose 230 mg/dL (65-110); Magnesium 2.6 mg/dL (1.6-2.3); Sodium 136 mmol/L (137-145)
[2023-01-31 06:09] LABS: Procalcitonin 0.1 ng/mL
[2023-01-31 08:15] LABS: Glucose Point of Care 216 mg/dl (65-105)
[2023-01-31] MEDS: INSULIN ASPART (*BKC) 100 UNITS/ML SUB-Q ×2 (08:46→11:31)
[2023-01-31] MEDS: HEPARIN SODIUM 5,000 UNITS/ML VIAL 5000 UNITS SUB-Q (08:48)
[2023-01-31] MEDS: SPIRONOLACTONE 25 MG TABLET PO (08:49)
[2023-01-31] MEDS: polyethylene glycoL 3350 17 GM POWD.PACK PO (08:49)
[2023-01-31] MEDS: FUROSEMIDE 20 MG TABLET PO (08:49)
[2023-01-31] MEDS: METOPROLOL SUCCINATE EXT REL 50 MG TABCR PO (08:49)
[2023-01-31] MEDS: SOTALOL HCL 40 MG TABLET PO (08:49)
[2023-01-31] MEDS: EMPAGLIFLOZIN 10 MG TABLET PO (08:49)
--- NOTE | 2023-01-31 10:00 | ECG_ITS ---
Measurements Intervals [place] Rate: 63 P: 61 [place]: 143 QRS: 44 QRSD: 98 T: 41 QT: 487 QTc: 500 Interpretive Statements SINUS RHYTHM POSSIBLE LEFT ATRIAL ENLARGEMENT PROLONGED QT INTERVAL BASELINE ARTIFACT- I, II, III ABNORMAL ECG COMPARED TO ECG 01/30/2023 22:34:39 SINUS RHYTHM NOW PRESENT Electronically Signed On 01-31-2023 10:59:17 GEM SETTER by Itz Griffin D.O.
[2023-01-31] MEDS: FUROSEMIDE INJ 40 MG/4 ML VIAL 20 MG IV PUSH (11:28)
[2023-01-31 12:18] LABS: Glucose Point of Care 257 mg/dl (65-105)
--- NOTE | 2023-01-31 14:26 | PM.PNCARD ---
Progress Note: A&P Assessment and Plan (1) Acute on chronic diastolic heart failure: Code(s): I50.33 - Acute on chronic diastolic (congestive) heart failure Status: Acute Assessment and Plan: Patient presents with severe acute on chronic diastolic heart failure. Prob dietary noncompliance +/- mitral regurgitation. --Give furosemide 20mg IV x 1 now, then continue furosemide 20mg p.o. daily --daily BMP --Continue Jardiance, spironolactone --low-sodium diet --Encouraging pt to be out of bed and ambulate. (2) Atrial fibrillation, persistent: Code(s): I48.19 - Other persistent atrial fibrillation Status: Acute Assessment and Plan: New onset of atrial fibrillation 01/27/2023, a new diagnosis for the patient. Converted to NSR yesterday. --Has been started on sotalol, converted to NSR, now sinus rhythm in 60's --Fifth dose sotalol 01/31 a.m. Continue sotalol to 40mg b.i.d. (QTc 500ms) --will decrease metoprolol succ to 50mg daily, may --started anticoagulation with Xarelto 15 mg daily. Increase dose to 20mg daily (CrCl >50 now) --continue telemetry --likely d/c tomorrow if she is able to remain off O2 (3) Mitral regurgitation: Code(s): I34.0 - Nonrheumatic mitral (valve) insufficiency Status: Acute Assessment and Plan: Moderate to severe mitral regurgitation noted on echo. Murmur not impressive but may need follow-up. (4) History of rectal bleeding: Code(s): Z87.19 - Personal history of other diseases of the digestive system Status: Acute Assessment and Plan: Patient notes some rectal bleeding on her toilet tissue after straining for bowel movement. Colonoscopy a couple years ago was unremarkable. Likely hemorrhoidal or related to local irritation. --daily MiraLax while on anticoagulant (5) Elevated troponin: Code(s): R79.89 - Other specified abnormal findings of blood chemistry Status: Acute Assessment and Plan: Her troponin is mildly elevated but I think this is more likely non ischemic myocardial injury rather than a non-STEMI, as there was no typical chest discomfort and her 2nd EKG is normal. --No further eval needed. (6) Hypertension: Code(s): I10 - Essential (primary) hypertension Status: Acute Assessment and Plan: Apparently not well controlled recently. Improved now. --continue metoprolol, telmisartan, spironolactone, furosemide (7) Lymphedema: Code(s): I89.0 - Lymphedema, not elsewhere classified Status: Acute Assessment and Plan: Chronic edema, with history of cellulitis, much improved. Plan Discussed plan with Hospitalist, Dr. Holly Subjective Date/time seen: 01/31/23 14:26 Interval history: Follow-up for acute on chronic diastolic CHF, possibly secondary to dietary noncompliance vs MR. Her echo showed moderate to moderately severe mitral regurgitation. Developed new a fib RVR 01/27/2023, started on soltalol 01/29/2023. Normally followed by downstream biomanufacturing technician Dr. Deutsch at [facility], though said she may wish to FU w/ our group. 01/26/2023: Feeling better today.? Less short of breath. Continue IV Lasix 01/27/2023: She is improving clinically with intravenous furosemide.? I would continue this at least for 1 more day since her chest does still demonstrate mild bibasilar rales.? Hopefully transition to oral furosemide over the weekend. Date of service 01/28/2023: Patient went into atrial fib (new problem) yesterday, and this morning she has had rapid ventricular response with heart rate in the 130s. No palps but still a little MILLER w/ activity. Diuresed 2100 cc yesterday. Still on O2, w/ BiPAP at night. I considered starting pt on sotalol but QTC prolonged (fr azithromycin?); increased metoprolol to 100 mg qd. Azithromycin and Zofran DC. Date of service 01/29/2023: No SOB at rest. Intermittently on O2. NO CPAP last night. Not out of bed much at all. Daughter Reed
--- NOTE | 2023-01-31 15:43 | PM.DS ---
DS: Admitting Diagnosis Discharge Date 01/31/2023: Admitting Diagnosis shortness of breath acute on chronic diastolic failure DS: Discharge Diagnosis Discharge Diagnosis (1) Mitral regurgitation: Code(s): I34.0 - Nonrheumatic mitral (valve) insufficiency Status: Acute (2) Diabetes: Code(s): E11.9 - Type 2 diabetes mellitus without complications Status: Acute (3) Hypertension: Code(s): I10 - Essential (primary) hypertension Status: Acute (4) Acute on chronic diastolic heart failure: Code(s): I50.33 - Acute on chronic diastolic (congestive) heart failure Status: Acute (5) Pulmonary vascular congestion: Code(s): R09.89 - Other specified symptoms and signs involving the circulatory and respiratory systems Status: Acute (6) Obesity: Code(s): E66.9 - Obesity, unspecified Status: Acute DS: Summary Hospital Course Reason for hospitalization: patient admitted with shortness of breadth Hospital Course: H&P: HPI History of Present Illness Date/Time: 01/25/23? 17:35 Chief Complaint: shortness of breath Narrative: 73F w/ pmh HFpEF, NIDDM, HLD, HTN, lymphedema presents with progressive shortness of breath. she denies chest pain, cough, abdominal pain, n/v/d. she does have rash on her legs Hospital course ... 01/25/2023 to 01/30/2023: 73F w/ PMH HFpEF, NIDDM, HLD, HTN, lymphedema presents with shortness of breath. Admitted on 01/25 for acutely decompensated heart failure. 1) acute decompensated HFpEF - echo 01/25 - EF 55-60% with grade 2 diastolic dysfunction, mod-severe mitral regurgitation (needs follow up) - resolved. cont daily weights, fluid restriction - cont lasix 20mg po daily, jardiance, spironolactone 2) irritant contact dermatitis - 2/2 to excessive use of triple abx ointment. focal areas of erythema now resolved, still with erythema more diffusely related to stasis 3) acute hypoxic respiratory failure - unable to wean o2 in spite of CHF resolving. on admission possible pna on x ray, althrough repeat on 01/28 did not reveal that. she has had dry cough for many years. - ceftriaxone and azithromycin started 01/26. azithromycin dc'ed 01/28 for elevated qtc. cont ceftriaxone, ordered CTA chest. wbc elevated again on 01/30 as well. check procalcitonin 4) a fib w/ RVR - new, discovered while inpatient - sotalol started with EKG checks for QTC. will have 5th dose 01/30 in am. rate now controlled. defer to cardiology for futher mgmt, including toprol dosing - started on xarelto 15mg po qday 5) hx of HTN - controlled. cont telmisartan, lasix, sotalol and toprol 6) NIDDM - cont jardiance. sugars well controlled. accuchecks achs and iss 01/31/2023: Patient seen and evaluated today. She is feeling better and responded well to IV and po diuresis. She has been weaned off her oxygen successfully, and is not currently on any supplemental oxygen. She is ambulating well while holding her Os sats. She has tolerated sotalol dosing in the hospital. She has been cleared from Cardiology to be discharged home on oral anticoagulation and multiple cardiac med changes as reflected in the discharge med rec sheet. Status at Discharge Overall status at discharge: patient is progressing back to baseline Time Spent with Patient Time attestation: Total time spent providing and/or coordinating discharge services: Time spent: Greater than 30 minutes Exam Narrative: PHYSICAL EXAMINATION: Vital signs: Please see the chart General physical exam: patient lying in bed, feels a little better and wants to go home Head/eyes: Atraumatic, EOMI, PERRLA ENT: Moist mucous membranes, nasal passages clear Neck: Supple, full range of motion, trachea midline CVS: S1 + S2, irregularly irregular rate and rhythm, no murmurs Respiratory: Bilaterally decreased air entry in both lung warren, mild B/L crackles Abdomen: Soft, non-tender, bowel sounds +ve, no organomegal
[2023-01-31 16:50] LABS: Glucose Point of Care 119 mg/dl (65-105)
[2023-01-31] MEDS: RIVAROXABAN 20 MG TABLET PO (17:31)
== END 2023-01-31 17:55 | disposition home health service (06) | DRG 291 ==
LOC: ANHED 02:52 → ANHIMU 08:29
PROVIDERS: General Practice; Internal Medicine Cardiovascular Disease; Nurse Practitioner; Nurse Practitioner Acute Care; Admitting Provider Internal Medicine; Emergency Provider Emergency Medicine; PCP Family Medicine; Visit Provider Family Medicine
DX: I11.0 Hypertensive heart disease with heart failure (principal); I50.33 Acute on chronic diastolic (congestive) heart failure; J18.9 Pneumonia, unspecified organism; J96.21 Acute and chronic respiratory failure with hypoxia; I48.19 Other persistent atrial fibrillation; E11.9 Type 2 diabetes mellitus without complications; Z79.4 Long term (current) use of insulin; I89.0 Lymphedema, not elsewhere classified; I34.0 Nonrheumatic mitral (valve) insufficiency; L24.9 Irritant contact dermatitis, unspecified cause; I5A Non-ischemic myocardial injury (non-traumatic); E66.9 Obesity, unspecified; E78.5 Hyperlipidemia, unspecified
CPT/HCPCS: 36415; 36600; 71045; 71250; 71275; 78582; 80048; 80053; 81001; 82550; 82805; 82948; 83605; 83735; 83880; 84145; 84443; 84484; 85025; 85380; 85610; 87086; 87088; 87637; 93005; 94002; 94003; 94762; 96365; 96375; 96376; 97161; 97165; 97530; 97535; 99285; A9270; A9540; A9558; C8929; G0378; J0456; J0696; J1200; J1644; J1815; J1940; J2405; J2765; J2930; J3475; J7060; J7512; Q9957; Q9967

== ENCOUNTER 2023-04-09 18:21 | Inpatient (IN) | payer MEDICARE, SELFPAY ==
[2023-04-09] VITALS (15 sets, daily range): BP systolic 128–152; BP diastolic 63–82; PULSE 64–79; RESP 14–22; TEMP 36.8–37.1; O2SAT 95–98
--- NOTE | ~2023-04-09 | MR_ITS ---
MRI of the brain Clinical History: Dysarthria, left arm numbness Technique: Axial and sagittal T1-weighted images were acquired. These were followed by axial T2-weigh orquidea, diffusion weighted, gradient, and FLAIR images. Findings: There is a small focal area of restricted diffusion in the right periventricular white artem er the right frontal lobe, compatible small focal acute infarct. There are several areas of mild incr eased signal on diffusion-weighted images in the periventricular white matter bilaterally, without de finite corresponding low signal on ADC map. This could reflect T2 shine through from underlying moder ate chronic microvascular ischemic change, versus possibly resolving subacute focal infarcts. No intr acranial hemorrhage identified. There is additional chronic microvascular ischemic change in the jeffy . Ventricles and subarachnoid spaces are unremarkable. Orbits are unremarkable. There is mild bilateral maxillary sinus disease. Remaining paranasal sinuses and mastoid air cells are clear. Major intracra nial flow voids are intact. Sagittal midline structures are intact. IMPRESSION: Small focal acute infarct in the right frontal lobe periventricular white matter. Several additional possible focal subacute infarcts in the periventricular white matter bilaterally v ersus T2 shine through related to underlying moderate chronic microvascular ischemic change. Reviewed, dictated and finalized at location . [employer] PROCESSING IMPRESSION: Small focal acute infarct in the right frontal lobe periventricular white matte r. Several additional possible focal subacute infarcts in the periventricular whit e matter bilaterally versus T2 shine through related to underlying moderate chr onic microvascular ischemic change.
--- NOTE | ~2023-04-09 | CT_ITS ---
EXAMINATION: CTA brain carotid DATE: 04/09/2023 21:15 INDICATION: left sided numbness/weakness TECHNIQUE: Computed tomographic angiography (CTA) of the head and neck was performed with 100 mL Omni paque-350 intravenous contrast. CTA of the neck was performed with intravenous contrast. The mA was a djusted according to patient size. Iterative reconstruction technique was employed. The dose-length p roduct was 1187.76 mGy-cm. Maximum intensity projection and volume rendered 3D-reconstructions were c reated by the technologist on a separate workstation. COMPARISON: CT brain, same date. FINDINGS: CTA HEAD: No large vessel occlusion, aneurysm, high flow vascular malformation, nidus or extravasation. Atheros clerotic calcifications at the bilateral cavernous carotids without significant stenosis. Patent cere bral veins. Symmetric parenchymal enhancement. CTA NECK: Aortic arch and proximal great vessels: Normal arch anatomy. Mild arch calcification. Right common carotid, carotid bifurcation, and internal carotid artery: No plaque.There is 0% stenosi s of the proximal right internal carotid artery relative to normal distal artery lumen diameter (NASC ET criteria). Left common carotid, carotid bifurcation, and internal carotid artery: Minimal calcified plaque at th e bifurcation.There is 0% stenosis of the proximal left internal carotid artery relative to normal di stal artery lumen diameter (NASCET criteria). Vertebral arteries: No significant plaque or stenosis. Vertebral arteries co-dominant. Other findings: Multilevel degenerative disc disease in the cervical spine. Multilevel moderate bilat eral neural foraminal narrowing. No severe central canal narrowing. 1 cm right thyroid nodule, which requires no additional evaluation at this time. Mosaic attenuation in the lungs. IMPRESSION: No large vessel intracranial occlusion, high-grade intracranial stenosis, or aneurysm. No carotid or vertebral artery occlusion, dissection, or significant stenosis. Mosaic attenuation in the lungs, which can be seen with asthma, bronchiolitis obliterans, hypersensit ivity pneumonitis, and chronic thromboembolic disease. Reviewed, dictated and finalized at location K. LEVELER IMPRESSION: No large vessel intracranial occlusion, high-grade intracranial stenosis, or an eurysm. No carotid or vertebral artery occlusion, dissection, or significant stenosis. Mosaic attenuation in the lungs, which can be seen with asthma, bronchiolitis o bliterans, hypersensitivity pneumonitis, and chronic thromboembolic disease.
--- NOTE | ~2023-04-09 | CT_ITS ---
EXAMINATION: CT brain wo con DATE: 04/09/2023 19:00 INDICATION: cva? . TECHNIQUE: Computed tomography (CT) of the head was performed without intravenous contrast. The mA wa s adjusted according to patient size. Iterative reconstruction technique was employed. The dose-lengt h product was 681.00 mGy-cm. COMPARISON: None. FINDINGS: No acute intracranial hemorrhage or extra-axial fluid collection. No hydrocephalus, mass, or herniation. No acute ischemic infarct. Unremarkable dural venous sinus attenuation. No acute osseous abnormality. Aerated secretions in the right sphenoid, nodular mucosal thickening in the bilateral maxillary sinus es, mucosal thickening in a left middle ethmoid air cell, the remaining aerated spaces are clear. Mild atrophy and chronic white matter change. Atherosclerotic intracranial calcification. Right lens replacement. Bilateral basal ganglia calcification. IMPRESSION: No acute intracranial process. Possible acute left sphenoid sinusitis. Reviewed, dictated and finalized at location K. ER HAND
--- NOTE | 2023-04-09 18:26 | ECG_ITS ---
Measurements Intervals [place] Rate: 72 P: 29 WA: 130 QRS: 48 QRSD: 90 T: 43 QT: 403 QTc: 443 Interpretive Statements SINUS RHYTHM BASELINE WANDER- II, III, V1-V2 NORMAL ECG COMPARED TO ECG 01/31/2023 09:57:11 PROLONGED QT INTERVAL NO LONGER PRESENT Electronically Signed On 04-10-2023 6:02:29 [employer]IV[employer] WORK[employer] by Itz Griffin D.O.
--- NOTE | 2023-04-09 19:53 | PC.NURSE ---
Provider made aware of all pt symptoms by this RN when pt was brought back to room @1945
[2023-04-09 20:02] LABS: Glucose Point of Care 127 mg/dl (65-105)
[2023-04-09 20:25] LABS: Alanine Aminotransferase 17 U/L (6-35); Albumin Level 4.2 g/dL (3.5-5.1); Alkaline Phosphatase 75 U/L (38-126); Anion Gap 7 mmol/L (8-16); Aspartate Amino Transferase 36 U/L (14-36); Bilirubin,Total 0.5 mg/dL (0.2-1.3); Blood Urea Nitrogen 19 mg/dL (7-17); Calcium 9.5 mg/dL (8.4-10.2); Carbon Dioxide 29 mmol/L (22-30); Chloride 104 mmol/L (98-107); Estimated CRCL calculation 278 ml/min; Estimated Glomerular Filt Rate 44; Glucose 116 mg/dL (65-110); INR 1.1; Potassium 4.3 mmol/L (3.4-5.0); Prothrombin Time 14.7 Seconds (11.1-14.7); Sodium 140 mmol/L (137-145)
[2023-04-09 20:27] LABS: Partial Thromboplastin Time 33.3 SECONDS (22.3-36.8)
[2023-04-09 20:28] LABS: Basophils Absolute Auto 0.1 K/mm3 (0.0-0.1); Basophils Percent Auto 0.7 % (0.2-1.2); Eosinophils Absolute Auto 0.6 K/mm3 (0-0.3); Eosinophils Percent Auto 5.7 % (0-4.4); Hematocrit 45.7 % (37.0-47.0); Hemoglobin 14.2 g/dL (12.0-15.0); Immature Granulocyte Absolute 0.06 K/mm3 (0.00-0.031); Immature Granulocyte Percent A 0.5 % (0-0.5); Lymphocytes Absolute Auto 1.59 K/mm3 (0.9-3.2); Lymphocytes Percent Auto 14.2 % (18.3-44.2); Mean Corpuscular HGB Conc 31.1 g/dl (32-36); Mean Corpuscular Hemoglobin 28.6 pg (26-34); Mean Platelet Volume 9.8 fl (7.4-10.4); Monocytes Absolute Auto 1.1 K/mm3 (0.1-0.6); Monocytes Percent Auto 9.6 % (2.6-8.5); Neutrophils Absolute Auto 7.8 K/mm3 (1.3-6.7); Neutrophils Percent Auto 69.3 % (45.5-73.1); Platelet Count Result 297 k/mm3 (150-375); Red Blood Count 4.97 M/mm3 (4.2-5.4); Red Cell Distribution Width 15.7 % (11.5-14.5); White Blood Count 11.2 K/mm3 (4.5-10.0)
--- NOTE | 2023-04-09 20:36 | ED.NEUROSD ---
HPI - Neuro Symptoms/Deficit General Chief Complaint: Suspected CVA Stated Complaint: having a stroke Time Seen by Provider: 04/09/23 19:47 History of Present Illness HPI Narrative: Patient is a 73-year-old female with a history of CAD, Afib on Xarelto presenting with stroke-like symptoms. Last known well was 11:30 p.m. last night, approximately 20 hours ago. States that she went to bed in her normal state of health. When she woke up she felt like her left arm was numb and thought she had slept on it wrong. States that she was unable to get it to wake up . States that she also felt like her tongue was thick. Her daughter checked on her at 5:30 p.m. noticed slurred speech so brought her in for evaluation. Denies facial droop. No lower extremity weakness. Denies weakness in her arms. Continues to have some dysarthria. No pain. No further complaints. Related Data Home Medications Medication Instructions Recorded Confirmed albuterol sulfate 90 mcg/actuation 1 - 2 puff inhalation Q4-6H PRN 01/25/23 01/25/23 aerosol inhaler Shortness Of Breath Or Wheezing ammonium lactate 12 % lotion 1 applic topical DAILY PRN Dry Skin 01/25/23 01/25/23 citalopram 10 mg tablet 10 mg PO HS 01/25/23 01/25/23 fluticasone propionate 44 1 inh inhalation DAILY 01/25/23 01/25/23 mcg/actuation HFA aerosol inhaler (Flovent HFA) metoprolol succinate 50 mg 50 mg PO DAILY 01/25/23 01/25/23 tablet,extended release 24 hr rosuvastatin 20 mg tablet 20 mg PO HS 01/25/23 01/25/23 telmisartan 40 mg tablet 40 mg PO HS 01/25/23 01/25/23 Allergies Allergy/AdvReac Type Severity Reaction Status Date / Time iodine Allergy Rash Verified 01/25/23 03:44 Penicillins Allergy Other Verified 01/25/23 14:36 Review of Systems Review of Systems: All systems reviewed & are unremarkable except as noted in HPI and below PMFSH Past Medical History Medical History Atrial fibrillation, persistent Chronic diastolic heart failure Diabetes Hyperlipidemia Hypertension Lymphedema Mitral regurgitation Obesity Family History Family History Father Heart disease Mother Sudden Found in an unairconditioned apartment in the summer Social History Social History Social History: Patient lives with her was undergoing chemotherapy. Has at least 2 daughters, one of whom is Hortencia. Smoking status: Never smoker Alcohol intake: never Substance use: never Lack of Transportation: No Lack of Food: Never True Current Housing: I Have Housing Concerned About Future Housing: No Difficulty Paying Gas/Electric Bills: No Difficulty Paying for Meds: No Currently Unemployed: No Education: Associate Degree Difficulty w/ Childcare or Family Care: No Spiritual care concerns: No Exam Narrative: GENERAL: Nontoxic, no acute distress, pleasant cooperative HEAD: Normocephalic, atraumatic. EYES: PERRLA and EOMI. ENT: grossly unremarkable NECK: Supple. CHEST: Clear to auscultation. No respiratory distress. HEART: Regular rate and rhythm ABDOMEN: Soft, nontender, nondistended EXTREMITIES: Normal range of motion. No edema. SKIN: Warm, dry, no rash. NEURO: Alert and oriented x3. 5/5 strength in all extremities, mild sensory deficit left arm, mild dysarthria, no pronator drift, [id number] intact PSYCH: Normal mood and affect. Course Vital Signs Vital signs: Vital Signs Temperature 98.3 F 04/09/23 19:20 Pulse Rate 74 04/09/23 19:20 Respiratory Rate 19 04/09/23 19:20 Blood Pressure 129/68 04/09/23 19:20 Pulse Oximetry 96 04/09/23 19:20 Temperature 98.3 F 04/09/23 19:20 Pulse Rate 71 04/09/23 19:51 Respiratory Rate 15 04/09/23 19:51 Blood Pressure 145/82 H 04/09/23 19:51 Pulse
[2023-04-09 20:37] LABS: Troponin I < 0.012 ng/mL (0.000-0.034)
[2023-04-09] MEDS: diphenhydrAMINE HCl INJ 50 MG/ML VIAL 25 MG IV PUSH (20:56)
[2023-04-09] MEDS: ASPIRIN 325 MG TABLET PO (23:25)
[2023-04-10] VITALS (44 sets, daily range): BP systolic 101–144; BP diastolic 53–81; PULSE 60–87; RESP 14–23; TEMP 36.5–36.8; O2SAT 93–99; BMI 38.9
[2023-04-10 03:27] LABS: Appearance Urine Clear (Clear); Bacteria Urine Rare /hpf; Bilirubin Urine Negative (Negative); Blood Urine 1+ (Negative); Color Urine Yellow (Yellow); Glucose Urine UA 3+ mg/dL (Negative); Ketones Urine Negative (Negative); Leukocyte Esterase Ur 1+ LEU/UL (Negative); Nitrate Urine Negative (Negative); Non Pathogenic Casts 0-2; Protein Urine Negative (Negative); Specific Grav Ur 1.058 (1.001-1.035); Squamous Epithelial Cell Urine Moderate /hpf (Few); WBC Urine 21-50 /hpf
[2023-04-10 03:28] LABS: Add Urine Microscopic? YES
--- NOTE | 2023-04-10 07:51 | PC.NURSE ---
Pt to MRI via w/c at this time.
--- NOTE | 2023-04-10 10:05 | PC.NURSE ---
Spoke to Em de la cruz/ [facility] - called for update on pt and updated VS. Will continue to seek bed placement and call back w/ updates.
--- NOTE | 2023-04-10 11:32 | PC.NURSE ---
called dietary and ordered a lunch tray for pt at this time
[2023-04-10] MEDS: HYDROcodone/acetaminophen (*CRX) 5-325 MG TABLET 1 TAB PO (16:53)
--- NOTE | 2023-04-10 20:09 | ECG_ITS ---
Measurements Intervals [place] Rate: 88 P: 23 HI: 126 QRS: 44 QRSD: 93 T: 34 QT: 370 QTc: 449 Interpretive Statements SINUS RHYTHM BORDERLINE ST ABNORMALITY- ANTEROLATERAL LEADS BASELINE ARTIFACT- I, II, III, AVR, AVL, AVF BORDERLINE ECG COMPARED TO ECG 04/09/2023 19:50:14 ST ABNORMALITY NOW PRESENT Electronically Signed On 04-11-2023 16:28:51 [employer] by Itz Griffin D.O.
[2023-04-10 20:15] LABS: Glucose Point of Care 153 mg/dl (65-105)
[2023-04-10] MEDS: ASPIRIN 325 MG TABLET PO (21:10)
--- NOTE | 2023-04-10 23:05 | PM.IMHP ---
H&P: HPI History of Present Illness Date/Time: 04/10/23 23:05 Chief Complaint: speech disturbance Narrative: this is a 73-year-old female with past medical history significant for hypertension, atrial fibrillation rate controlled anticoagulated, diastolic heart failure, mitral regurg, obesity. Patient presents to the emergency room due to episode of speech disturbance numbness and weakness of left side of the face preliminary workup has been essentially nonrevealing. Patient has been placed in observation for further evaluation management and treatment. EXAMINATION: CT brain wo con DATE: 04/09/2023 19:00 INDICATION: cva? . TECHNIQUE: Computed tomography (CT) of the head was performed without intravenous contrast. The mA was adjusted according to patient size. Iterative reconstruction technique was employed. The dose-length product was 681.00 mGy-cm. COMPARISON: None. FINDINGS: No acute intracranial hemorrhage or extra-axial fluid collection. No hydrocephalus, mass, or herniation. No acute ischemic infarct. Unremarkable dural venous sinus attenuation. No acute osseous abnormality. Aerated secretions in the right sphenoid, nodular mucosal thickening in the bilateral maxillary sinuses, mucosal thickening in a left middle ethmoid air cell, the remaining aerated spaces are clear. Mild atrophy and chronic white matter change. Atherosclerotic intracranial calcification. Right lens replacement. Bilateral basal ganglia calcification. IMPRESSION:? No acute intracranial process. Possible acute left sphenoid sinusitis. EXAMINATION: CTA brain carotid DATE: 04/09/2023 21:15 INDICATION: left sided numbness/weakness TECHNIQUE: Computed tomographic angiography (CTA) of the head and neck was performed with 100 mL Omnipaque-350 intravenous contrast. CTA of the neck was performed with intravenous contrast. The mA was adjusted according to patient size. Iterative reconstruction technique was employed. The dose-length product was 1187.76 mGy-cm. Maximum intensity projection and volume rendered 3D-reconstructions were created by the technologist on a separate workstation. COMPARISON: CT brain, same date. FINDINGS: CTA HEAD: No large vessel occlusion, aneurysm, high flow vascular malformation, nidus or extravasation. Atherosclerotic calcifications at the bilateral cavernous carotids without significant stenosis. Patent cerebral veins. Symmetric parenchymal enhancement. CTA NECK: Aortic arch and proximal great vessels: Normal arch anatomy. Mild arch calcification. Right common carotid, carotid bifurcation, and internal carotid artery: No plaque.There is 0% stenosis of the proximal right internal carotid artery relative to normal distal artery lumen diameter (NASCET criteria).? Left common carotid, carotid bifurcation, and internal carotid artery: Minimal calcified plaque at the bifurcation.There is 0% stenosis of the proximal left internal carotid artery relative to normal distal artery lumen diameter (NASCET criteria). Vertebral arteries: No significant plaque or stenosis. Vertebral arteries co-dominant. Other findings: Multilevel degenerative disc disease in the cervical spine. Multilevel moderate bilateral neural foraminal narrowing. No severe central canal narrowing. 1 cm right thyroid nodule, which requires no additional evaluation at this time. Mosaic attenuation in the lungs. IMPRESSION: No large vessel intracranial occlusion, high-grade intracranial stenosis, or aneurysm. No carotid or vertebral artery occlusion, dissection, or significant stenosis. Mosaic attenuation in the lungs, which can be seen with asthma, bronchiolitis obliterans, hypersensitivity pneumonitis, and chronic thromboembolic disease. ? Review of Systems Review of Systems: Speech disturbance left facial weakness Constitutional: Constitutional: Denies chills, Denies fatigue, Denies fever(s), Denies malaise, Denies night sweats and Rayray
--- NOTE | 2023-04-10 23:35 | ADMGEN ---
This patient, Janeth Betancur, was admitted to 2 Medical Room 260-. Patient/family oriented to hospital policies and general routines including ID bracelet, bed and alarms, visiting hours, pain management, procedures, bathroom and other care routines, personal items, smoking policy, room service/diet, and visiting hours. Information on how to activate the Rapid Response Team has been discussed. Patient/Family are encouraged to report perceived risks to care and to ask questions if they do not understand what they are told or what they should do.
[2023-04-11] VITALS (13 sets, daily range): BP systolic 115–151; BP diastolic 44–85; PULSE 67–94; RESP 12–16; TEMP 36.2–37.1; O2SAT 94–99
--- NOTE | 2023-04-11 11:53 | WPDNEURCNPN ---
Assessment and Plan Assessment and plan (1) Stroke: Code(s): I63.9 - Cerebral infarction, unspecified Status: Acute Plan 1. Small acute focal infarct in the right frontal lobe periventricular white matter 2. Several additional possible focal subacute infarct in periventricular white matter bilaterally 3. Underlying atrial fibrillation. 3. Last echocardiogram was on January 25, 2023 which has documented left atrial chamber dimension mildly enlarged with moderate to moderately severe mitral valve regurgitation and moderate pulmonary hypertension. Will discuss with the patient. Consult date: 04/11/23 HPI: Janeth Betancur is a 73 year old female Admitted to the hospital for the possibility of the stroke. Patient carries the diagnosis of atrial fibrillation and has been on Xarelto in addition she has underlying history of coronary artery disease reportedly she went to bed in the normal state of health and woke up when she felt her left upper extremity was numb she thought that she slept on 8 but she was unable to get it to wake up state and at the same time she felt her tongue was thick her daughter checked on her at 5:30 p.m. when she noted her speech was slurred and she brought her for the further evaluation. Her outpatient medications include citalopram 10mg at night, metoprolol 50mg daily, rosuvastatin 20mg at night, and telmisartan 40mg daily she is allergic to iodine and penicillin and she carries the diagnosis of as mentioned before persistent atrial fibrillation with chronic diastolic heart failure and underlying hypertension in addition to diabetes mellitus she has never smoker never alcohol intaker, her studies up until now revealed her to have very mild leukocytosis WBC 11.2 INR 1.1 D-dimer 2.08 BUN 19 creatinine 1.20 and estimated GFR of only [address] scan of the head was with possible acute left sphenoid sinusitis, MRI of the brain revealed small focal acute infarct in the right frontal lobe periventricular white matter with several additional possible focal subacute infarct in the periventricular white matter head neck CTA was done which documented no intracranial or extracranial stenosis or aneurysm. [facility] Past Medical History Medical History Atrial fibrillation, persistent Chronic diastolic heart failure Diabetes Hyperlipidemia Hypertension Lymphedema Mitral regurgitation Obesity Family History Family History Father Heart disease Mother Sudden Found in an unairconditioned apartment in the summer Social History Social History Social History: Patient lives with her was undergoing chemotherapy. Has at least 2 daughters, one of whom is Hortencia. Smoking status: Never smoker Alcohol intake: never Substance use: never Do You Feel Safe in your Home?: Yes Lack of Transportation: No Lack of Food: Never True Current Housing: I Have Housing Concerned About Future Housing: No Difficulty Paying Gas/Electric Bills: No Difficulty Paying for Meds: No Currently Unemployed: No Education: Associate Degree Difficulty w/ Childcare or Family Care: No Spiritual care concerns: No Meds Home Medications and Allergies Home Medications Medication Instructions Recorded Confirmed Type ammonium lactate 12 % lotion 1 applic topical DAILY PRN Dry Skin 01/25/23 04/10/23 History citalopram 10 mg tablet 10 mg PO HS 01/25/23 04/10/23 History rosuvastatin 20 mg tablet 20 mg PO HS 01/25/23 04/10/23 History empagliflozin 10 mg tablet 10 mg PO DAILY 30 days #30 tabs 01/31/23 04/10/23 Rx (Jardiance) furosemide 20 mg tablet 20 mg PO DAILY #30 tabs 01/31/23 04/10/23 Rx metoprolol succinate 50 mg 50 mg PO QAM #30 tabs 01/31/23 04/10/23 Rx tablet,extended release 24 hr sotalol 80 mg table
[2023-04-11] MEDS: LORATADINE 10 MG TABLET PO (13:06)
--- NOTE | 2023-04-11 15:23 | PCSTNOTE ---
Please refer to the Bedside Swallow Evaluation in the EMR. Please note, silent aspiration cannot be ruled out at bedside.
--- NOTE | 2023-04-11 15:30 | PCCCNOTE ---
On 04/11/23, the student, [Kevin Worley], provided care and completed [facility] documentation on this patient. I have reviewed the student's documentation and agree with the findings.
--- NOTE | 2023-04-11 15:52 | PM.IMPN ---
Progress Note: A&P Assessment and Plan (1) Stroke: Code(s): I63.9 - Cerebral infarction, unspecified Status: Acute (2) Obesity: Code(s): E66.9 - Obesity, unspecified Status: Acute (3) Mitral regurgitation: Code(s): I34.0 - Nonrheumatic mitral (valve) insufficiency Status: Acute (4) Atrial fibrillation, persistent: Code(s): I48.19 - Other persistent atrial fibrillation Status: Acute (5) Lymphedema: Code(s): I89.0 - Lymphedema, not elsewhere classified Status: Acute (6) Diabetes: Code(s): E11.9 - Type 2 diabetes mellitus without complications Status: Acute (7) Hypertension: Code(s): I10 - Essential (primary) hypertension Status: Acute (8) Acute on chronic diastolic heart failure: Code(s): I50.33 - Acute on chronic diastolic (congestive) heart failure Status: Acute Plan Patient admitted under observation for workup for her stroke-like symptoms MRI of the brain done today which showed small acute in the right frontal lobe along with several additional possible focal subacute infarcts in the periventricular white matter Patient has been advanced to full inpatient status Neurology consult given for evaluation and further treatment recommendations PT/OT/ST evaluation ordered 2D echo reviewed from 01/25/2023 which showed the preserved ejection fraction to 5-60% Patient has been on sotalol and Xarelto and she communicates compliance Cardiology consult requested to evaluate in spite of adequate anticoagulation and antiarrhythmic treatment for AFib Close coordination with Neurology and Cardiology regarding DC planning ? Patient seen and examined at bedside during my morning rounds ? Collaborated with patient's nurse at the bedside in detail and addressed all concerns ? Labs, electrolytes, radiology, investigations and test results reviewed ? Consult/Nursing/Ancilliary notes on the chart reviewed and appreciated ? Spoke with patient/daughter at the bedside and answered all the questions that they had Repeat labs in a.m. Electrolyte replacement as per protocol. Patient will be monitored very closely on the floor. Further recommendations as per the hospital course. Time Spent With Patient Time with patient: 25 - 35 minutes Subjective Date/time seen: 04/11/23 15:52 Interval history: Patient seen and evaluated at bedside. She is complaining of numbness of the tongue on the left side. She complains of biting left side of cheek with her teeth. Weakness and numbness of the left arm has improved significantly. Review of Systems Review of Systems: 14 systems were reviewed with pertinent positives and negatives per HPI. Except as documented in the HPI/progress notes, all other systems were reviewed and are negative. All systems reviewed & are unremarkable except as noted in HPI and below Exam Narrative: PHYSICAL EXAMINATION: Vital signs: Please see the chart General physical exam: Obese white female, lying in bed, appears to be weak tired and fatigued, cooperative with exam Head/eyes: Atraumatic, EOMI, PERRLA ENT: Moist mucous membranes, nasal passages clear Neck: Supple, full range of motion, trachea midline CVS: S1 + S2, regular rate and rhythm, no murmurs Respiratory: Bilaterally fair air entry in both lung warren, mild B/L crackles, symmetric chest expansion, no distress Abdomen: Soft, non-tender, bowel sounds +ve, no organomegaly Extremities: No clubbing, no cyanosis, no edema, no calf tenderness Musculoskeletal: Moves all, adequate range of motion, no muscle spasms Skin: Warm, dry, no jaundice, no cyanosis Neurological: Awake, alert, oriented x 3, cranial nerves II-XII intact, + mild weakness in the left upper extremity Psychiatric: + mildly anxious mood, non suicidal Objective Data Vital Signs Vital Signs: Vital Signs - 24 hr 04/10/23 16:31 04/10/23 18:24 04/10/23 20:01 Temperature 36.8 C Pulse Rate 78 6
[2023-04-11] MEDS: SOTALOL HCL 40 MG TABLET PO (18:26)
[2023-04-11] MEDS: DOCUSATE SODIUM 100 MG CAPSULE PO (18:32)
[2023-04-11] MEDS: ROSUVASTATIN 10 MG TABLET 20 MG PO (20:30)
[2023-04-11] MEDS: ASPIRIN 325 MG TABLET PO (20:34)
[2023-04-11] MEDS: CITALOPRAM HYDROBROMIDE 10 MG TABLET PO (20:34)
[2023-04-11] MEDS: TELMISARTAN 40 MG TABLET PO (20:34)
[2023-04-11] MEDS: TOLNAFTATE 1% POWDER 45 GM BTL 1 APPLIC TOPICAL (20:34)
[2023-04-11] MEDS: RIVAROXABAN 20 MG TABLET PO (20:34)
[2023-04-11 20:37] LABS: Glucose Point of Care 116 mg/dl (65-105)
[2023-04-12] VITALS (16 sets, daily range): BP systolic 127–135; BP diastolic 59–75; PULSE 69–92; RESP 14–18; TEMP 36.1–36.8; O2SAT 95–99
[2023-04-12 06:22] LABS: Basophils Percent Auto 0.5 % (0.2-1.2); Eosinophils Absolute Auto 0.2 K/mm3 (0-0.3); Eosinophils Percent Auto 3.1 % (0-4.4); Hematocrit 43.8 % (37.0-47.0); Hemoglobin 13.7 g/dL (12.0-15.0); Immature Granulocyte Absolute 0.04 K/mm3 (0.00-0.031); Immature Granulocyte Percent A 0.5 % (0-0.5); Lymphocytes Absolute Auto 1.47 K/mm3 (0.9-3.2); Lymphocytes Percent Auto 18.9 % (18.3-44.2); Mean Corpuscular HGB Conc 31.3 g/dl (32-36); Mean Corpuscular Hemoglobin 28.3 pg (26-34); Mean Corpuscular Volume 90.5 fl (80-100); Mean Platelet Volume 9.7 fl (7.4-10.4); Monocytes Absolute Auto 1.4 K/mm3 (0.1-0.6); Monocytes Percent Auto 17.6 % (2.6-8.5); Neutrophils Absolute Auto 4.6 K/mm3 (1.3-6.7); Neutrophils Percent Auto 59.4 % (45.5-73.1); Platelet Count Result 206 k/mm3 (150-375); Red Blood Count 4.84 M/mm3 (4.2-5.4); Red Cell Distribution Width 15.2 % (11.5-14.5); White Blood Count 7.8 K/mm3 (4.5-10.0)
[2023-04-12 06:57] LABS: Anion Gap 8 mmol/L (8-16); Blood Urea Nitrogen 13 mg/dL (7-17); Calcium 9.4 mg/dL (8.4-10.2); Carbon Dioxide 26 mmol/L (22-30); Chloride 103 mmol/L (98-107); Estimated CRCL calculation 60 ml/min; Estimated Glomerular Filt Rate > 60; Glucose 99 mg/dL (65-110); Magnesium 2.2 mg/dL (1.6-2.3); Phosphorus 4.3 mg/dL (2.5-4.5); Sodium 137 mmol/L (137-145)
[2023-04-12] MEDS: VITAMIN B COMPLEX CAPSULE 1 CAP PO (09:30)
[2023-04-12] MEDS: FUROSEMIDE 20 MG TABLET PO (09:30)
[2023-04-12] MEDS: SOTALOL HCL 40 MG TABLET PO ×2 (09:30→17:14)
[2023-04-12] MEDS: DOCUSATE SODIUM 100 MG CAPSULE PO ×2 (09:30→17:15)
[2023-04-12] MEDS: CHOLECALCIFEROL 1,000 UNITS TABLET 5000 UNITS PO (09:30)
[2023-04-12] MEDS: LORATADINE 10 MG TABLET PO (09:30)
[2023-04-12] MEDS: EMPAGLIFLOZIN 10 MG TABLET PO (09:31)
[2023-04-12] MEDS: SPIRONOLACTONE 25 MG TABLET PO (09:31)
[2023-04-12] MEDS: METOPROLOL SUCCINATE EXT REL 50 MG TABCR PO (09:31)
[2023-04-12] MEDS: TOLNAFTATE 1% POWDER 45 GM BTL 1 APPLIC TOPICAL ×2 (09:32→20:12)
--- NOTE | 2023-04-12 10:35 | PCPTNOTE ---
Attempted to se patient for PT, however patient was working with speech therapy.
[2023-04-12 12:20] LABS: Glucose Point of Care 137 mg/dl (65-105)
--- NOTE | 2023-04-12 13:17 | PM.CNCAR ---
Assessment and Plan Assessment and plan (1) Paroxysmal atrial fibrillation: Code(s): I48.0 - Paroxysmal atrial fibrillation Status: Acute Assessment and Plan: Extensive discussion held with the patient and her daughter bedside. Patient has been maintaining sinus rhythm since initial diagnosis 01/2023 after converting to sinus rhythm upon initiation of sotalol 40 mg twice daily. She has been absolutely compliant as she reports with Xarelto 20 mg at bedtime for her description without missing a single dose since initiation. We discussed multiple considerations pertaining to her stroke on systemic anticoagulation maintaining sinus rhythm. We discussed alternative explanation for stroke aside from thromboembolic related atrial fibrillation. However, statistically, atrial fibrillation given her history is most likely the explanation yet she is maintaining sinus rhythm on full anticoagulation making this very unlikely this certainly not impossible. We discussed this statistics and that there is always a residual risk for stroke even all for anticoagulation. As it turns out, she had COVID 3 weeks prior to her prior in the balance of her risks and clinical history of late I feel strongly that this had a strong clinical impact contributing to elevated thromboembolic risk culminating in stroke. The presence of intracardiac and or left atrial appendage throughout this remains unknown. However, performing a SHERON to clarify will not change her management ultimately. We discussed the pros and cons at great length in this regard. If a thrombus is identified continuation systemic anticoagulation was advised. If this was perpetuated by recent COVID infection continuation of anticoagulation again is the plan of care. We discussed the lack of compelling data supporting changing to alternative anticoagulant yet this remains a consideration. She has outright refused to consider Coumadin leaving Eliquis as alternative. Nonetheless, it would be reasonable to continue Xarelto with the addition of aspirin moving forward. After lengthy discussion regarding pros and cons she agrees and was in favor of changing medications so we will discontinue Xarelto and begin Eliquis 5 mg this evening to be taken twice daily. I recommend changing aspirin to 81 mg daily at discharge. We discussed the increased risk for bleeding in general this regimen. All questions were answered to their satisfaction. Continue sotalol 40 mg twice daily as she is maintaining sinus rhythm. I spent 88 minutes the care this patient with discussion the patient and her daughter at bedside, colleagues, chart review, medical decision-making, and documentation. (2) Stroke: Code(s): I63.9 - Cerebral infarction, unspecified Status: Acute Assessment and Plan: As above, acute and suspicion for which the etiology remains unclear statistically speaking atrial fibrillation most likely contribution secondary to intracardiac thrombus. However this was in the setting of full compliance with systemic anticoagulation without interruption which while not impossible is very likely. Given the lack of alternative explanations and her lack of prior stroke I believe the with significant preceding COVID infection is very likely the additional contributing factor resulting in stroke. As such, continued guideline directed medical therapy with anticoagulation with the addition of aspirin a risk factor modifications including statin therapy primary recommendation. There is no clear role for left atrial appendage thrombus occlusion in the setting at this time. Further recommendations per Neurology. (3) Chronic diastolic heart failure: Code(s): I50.32 - Chronic diastolic (congestive) heart failure Status: Acute Assessment and Plan: Patient is compensated. EF preserved by echocardiogram. Continue Jardiance 10 mg daily, Lasix 20 mg daily, Toprol XL 50 mg daily, spironolactone 25 mg daily,
[2023-04-12 16:31] LABS: Glucose Point of Care 138 mg/dl (65-105)
--- NOTE | 2023-04-12 16:33 | PC.NURSE ---
called to room by daughters who report slightly more slurred speech from pt and pt reports numbness in left hand, she had reported that to MD prior, will contact providers with assessment, pt has been up to chair since breakfast and has worked extensively with therapy, no acute distress noted VSS
--- NOTE | 2023-04-12 18:22 | PM.IMPN ---
Progress Note: A&P Assessment and Plan (1) Stroke: Code(s): I63.9 - Cerebral infarction, unspecified Status: Acute (2) Obesity: Code(s): E66.9 - Obesity, unspecified Status: Acute (3) Mitral regurgitation: Code(s): I34.0 - Nonrheumatic mitral (valve) insufficiency Status: Acute (4) Atrial fibrillation, persistent: Code(s): I48.19 - Other persistent atrial fibrillation Status: Acute (5) Lymphedema: Code(s): I89.0 - Lymphedema, not elsewhere classified Status: Acute (6) Diabetes: Code(s): E11.9 - Type 2 diabetes mellitus without complications Status: Acute (7) Hypertension: Code(s): I10 - Essential (primary) hypertension Status: Acute (8) Acute on chronic diastolic heart failure: Code(s): I50.33 - Acute on chronic diastolic (congestive) heart failure Status: Acute Plan MRI of the brain done which showed small acute in the right frontal lobe along with several additional possible focal subacute infarcts in the periventricular white matter Patient has been advanced to full inpatient status Neurology consult given for evaluation and further treatment recommendations PT/OT/ST evaluation ordered 2D echo reviewed from 01/25/2023 which showed the preserved ejection fraction to 55-60% Patient has been on sotalol and Xarelto and she communicates compliance Cardiology consult requested to evaluate in spite of adequate anticoagulation and antiarrhythmic treatment for AFib Patient had COVID-19 3 weeks ago which could have led to precipitation this causing the stroke. Cardiology evaluated the patient and wants to switch around anticoagulation from Xarelto to Eliquis Spoke with patient and daughters in detail at bedside and answered all the questions that they had Close coordination with Neurology and Cardiology regarding DC planning ? Patient seen and examined at bedside during my morning rounds ? Collaborated with patient's nurse at the bedside in detail and addressed all concerns ? Labs, electrolytes, radiology, investigations and test results reviewed ? Consult/Nursing/Ancilliary notes on the chart reviewed and appreciated ? Spoke with patient/daughter at the bedside and answered all the questions that they had Repeat labs in a.m. Electrolyte replacement as per protocol. Patient will be monitored very closely on the floor. Further recommendations as per the hospital course. Time Spent With Patient Time with patient: 25 - 35 minutes Subjective Date/time seen: 04/12/23 18:22 Interval history: Patient seen multiple times today as her and her daughter had lots of questions. Spoke with mouthpiece maker in detail as well. Patient had COVID-19 3 weeks ago which could have led to precipitation this causing the stroke. Cardiology recommending switching the anticoagulation to Eliquis. She has started to eat now. Review of Systems Review of Systems: 14 systems were reviewed with pertinent positives and negatives per HPI. Except as documented in the HPI/progress notes, all other systems were reviewed and are negative. All systems reviewed & are unremarkable except as noted in HPI and below Exam Narrative: PHYSICAL EXAMINATION: Vital signs: Please see the chart General physical exam: Obese white female, lying in bed, appears to be weak tired and fatigued, cooperative with exam Head/eyes: Atraumatic, EOMI, PERRLA ENT: Moist mucous membranes, nasal passages clear Neck: Supple, full range of motion, trachea midline CVS: S1 + S2, regular rate and rhythm, no murmurs Respiratory: Bilaterally fair air entry in both lung warren, mild B/L crackles, symmetric chest expansion, no distress Abdomen: Soft, non-tender, bowel sounds +ve, no organomegaly Extremities: No clubbing, no cyanosis, no edema, no calf tenderness Musculoskeletal: Moves all, adequate range of motion, no muscle spasms Skin: Warm, dry, no jaundice, no cyanosis Neurological: Diane
[2023-04-12] MEDS: ROSUVASTATIN 10 MG TABLET 20 MG PO (20:11)
[2023-04-12] MEDS: CITALOPRAM HYDROBROMIDE 10 MG TABLET PO (20:12)
[2023-04-12] MEDS: APIXABAN 5 MG TABLET PO (20:12)
[2023-04-12] MEDS: ASPIRIN 325 MG TABLET PO (20:12)
[2023-04-12] MEDS: TELMISARTAN 40 MG TABLET PO (20:12)
[2023-04-12 21:01] LABS: Glucose Point of Care 114 mg/dl (65-105)
[2023-04-13] VITALS (9 sets, daily range): BP systolic 127–128; BP diastolic 59–66; PULSE 60–78; RESP 15–20; TEMP 36.1–36.2; O2SAT 93–95
[2023-04-13 06:51] LABS: Basophils Absolute Auto 0.1 K/mm3 (0.0-0.1); Basophils Percent Auto 0.8 % (0.2-1.2); Eosinophils Absolute Auto 0.5 K/mm3 (0-0.3); Eosinophils Percent Auto 6.8 % (0-4.4); Hematocrit 44.7 % (37.0-47.0); Hemoglobin 14.4 g/dL (12.0-15.0); Immature Granulocyte Absolute 0.03 K/mm3 (0.00-0.031); Immature Granulocyte Percent A 0.4 % (0-0.5); Lymphocytes Absolute Auto 1.86 K/mm3 (0.9-3.2); Lymphocytes Percent Auto 23.3 % (18.3-44.2); Mean Corpuscular HGB Conc 32.2 g/dl (32-36); Mean Corpuscular Hemoglobin 28.7 pg (26-34); Mean Platelet Volume 9.4 fl (7.4-10.4); Monocytes Absolute Auto 1.3 K/mm3 (0.1-0.6); Monocytes Percent Auto 16.7 % (2.6-8.5); Neutrophils Absolute Auto 4.2 K/mm3 (1.3-6.7); Platelet Count Result 234 k/mm3 (150-375); Red Blood Count 5.02 M/mm3 (4.2-5.4); Red Cell Distribution Width 15.4 % (11.5-14.5)
[2023-04-13 07:19] LABS: Anion Gap 8 mmol/L (8-16); Blood Urea Nitrogen 17 mg/dL (7-17); Calcium 9.7 mg/dL (8.4-10.2); Carbon Dioxide 28 mmol/L (22-30); Chloride 102 mmol/L (98-107); Estimated CRCL calculation 54 ml/min; Estimated Glomerular Filt Rate 55; Glucose 105 mg/dL (65-110); Potassium 4.1 mmol/L (3.4-5.0); Sodium 138 mmol/L (137-145)
[2023-04-13] MEDS: DOCUSATE SODIUM 100 MG CAPSULE PO ×2 (08:33→16:49)
[2023-04-13] MEDS: SOTALOL HCL 40 MG TABLET PO ×2 (08:33→16:49)
[2023-04-13] MEDS: EMPAGLIFLOZIN 10 MG TABLET PO (08:33)
[2023-04-13] MEDS: LORATADINE 10 MG TABLET PO (08:33)
[2023-04-13] MEDS: METOPROLOL SUCCINATE EXT REL 50 MG TABCR PO (08:33)
[2023-04-13] MEDS: TOLNAFTATE 1% POWDER 45 GM BTL 1 APPLIC TOPICAL (08:34)
[2023-04-13] MEDS: VITAMIN B COMPLEX CAPSULE 1 CAP PO (08:34)
[2023-04-13] MEDS: CHOLECALCIFEROL 1,000 UNITS TABLET 5000 UNITS PO (08:34)
[2023-04-13] MEDS: FUROSEMIDE 20 MG TABLET PO (08:34)
[2023-04-13] MEDS: APIXABAN 5 MG TABLET PO (08:34)
[2023-04-13] MEDS: SPIRONOLACTONE 25 MG TABLET PO (08:34)
--- NOTE | 2023-04-13 08:46 | WPDNEUROPN ---
Progress Note: A&P Assessment and Plan (1) Stroke: Code(s): I63.9 - Cerebral infarction, unspecified Status: Acute (2) Paroxysmal atrial fibrillation: Code(s): I48.0 - Paroxysmal atrial fibrillation Status: Acute (3) Chronic diastolic heart failure: Code(s): I50.32 - Chronic diastolic (congestive) heart failure Status: Acute (4) Diabetes: Code(s): E11.9 - Type 2 diabetes mellitus without complications Status: Acute (5) Hypertension: Code(s): I10 - Essential (primary) hypertension Status: Acute (6) Obesity: Code(s): E66.9 - Obesity, unspecified Status: Acute Plan Ms. Betancur is a 74 year old female with a history of hypertension, atrial fibrillation, CHF, obesity who was admitted due to an episode of speech disturbance and numbness/weakness of the left side of the face. MRI brain showed acute R frontal infarct and possible subacute bilateral periventricular infarcts. She reports good compliance with her anticoagulation. Given distribution of the stroke, the concern is that it is more proximal in etiology (likely cardioembolic). Agree with Cardiology -- there is no strong evidence for changing anticoagulation in this setting and/or adding antiplatelet therapy, but it is reasonable to do so. She is now on Eliquis 5mg BID and aspirin 81mg daily. She has been also started on a statin. Surface echocardiogram with bubble study would also be recommended since she was not previously evaluated for shunt. I would check baseline LDL and A1c. There is also concern for possible sleep apnea. Refer to sleep medicine as outpatient. Will have her follow[place] [facility] as well after discharge. Subjective Date/time seen: 04/13/23 08:46 Interval history: Ms. Betancur is a 74 year old female with a history of hypertension, atrial fibrillation, CHF, obesity who was admitted due to an episode of speech disturbance and numbness/weakness of the left side of the face. She presented 20 hours after her last known well so she was not a candidate for thrombolytic (she was also on anticoagulation as well). In the ED she had dysarthria and mild sensory deficit in the LUE but equal strength in all extremities (per ED documentation). EKG on presentation showed sinus rhythm. Initial CT head was negative for acute changes. CTA brain/carotid was negative for significant stenosis or occlusion. MRI brain showed acute R frontal infarct and bilateral periventricular subacute infarcts (vs T2 shine through). She was taking Xarelto 20mg daily with reported good compliance. Patient has COVID about three weeks prior to the admission. Cardiology has been consulted. Her Xarelto was discontinued and she was started on Eliquis 5mg BID and Aspirin 81mg daily. She has also been started on rosuvastatin 20mg daily. LDL and A1c were not checked. Surface echocardiogram was not done during this admission. Echo was done during an admission in January 2023 which showed EF of 55-60% but bubble study was not done for shunt evaluation. Patient reports some fluctuation numbness in the LUE and LLE in the past day, also some fluctuating L facial droop. Otherwise feeling fairly well. Review of Systems Review of Systems: All systems reviewed & are unremarkable except as noted in HPI and below Exam Const: General: comfortable and no acute distress HENMT: Mouth: Yes moist mucous membranes Other: Mallampati score 3 Eyes: Pupils: Equal, round and reactive pupils present EOM: EOMs intact bilaterally Resp: Effort & Inspection: normal respiratory effort Skin: General skin exam: normal color Neuro: Other: AOx3, Pupils equal and reactive bilaterally, EOMI, mild left facial droop in lower face (L nasolabial flattening). Sensation is reduced in L face and LUE. Strength is intact in RUE and bilateral LE. She has mild LUE drift, FNF normal bilaterally. Language comprehension and fluency intact. Gait deferred.
--- NOTE | 2023-04-13 13:18 | PM.PNCARD ---
Progress Note: A&P Assessment and Plan (1) Paroxysmal atrial fibrillation: Code(s): I48.0 - Paroxysmal atrial fibrillation Status: Acute (2) Stroke: Code(s): I63.9 - Cerebral infarction, unspecified Status: Acute Assessment and Plan: As above, acute and suspicion for which the etiology remains unclear statistically speaking atrial fibrillation most likely contribution secondary to intracardiac thrombus. However this was in the setting of full compliance with systemic anticoagulation without interruption which while not impossible is very likely. Given the lack of alternative explanations and her lack of prior stroke I believe the with significant preceding COVID infection is very likely the additional contributing factor resulting in stroke. As such, continued guideline directed medical therapy with anticoagulation with the addition of aspirin a risk factor modifications including statin therapy primary recommendation. There is no clear role for left atrial appendage thrombus occlusion in the setting at this time. Further recommendations per Neurology. (3) Chronic diastolic heart failure: Code(s): I50.32 - Chronic diastolic (congestive) heart failure Status: Acute Assessment and Plan: Patient is compensated. EF preserved by echocardiogram. Continue Jardiance 10 mg daily, Lasix 20 mg daily, Toprol XL 50 mg daily, spironolactone 25 mg daily, and telmisartan 40 mg daily. (4) Mitral regurgitation: Code(s): I34.0 - Nonrheumatic mitral (valve) insufficiency Status: Acute Assessment and Plan: History of moderate to severe MR by echo 01/2023. She has moderate pulmonary hypertension RVSP 55 mmHg. EF 55-60%. She has mild left atrial enlargement. (5) Chronic anticoagulation: Code(s): Z79.01 - [facility] (current) use of anticoagulants Status: Acute Assessment and Plan: As above, continue systemic anticoagulation with addition of aspirin. We discussed increase bleeding risk. She will continue monitor closely. Ambulate caution to avoid risk of falls injuries. If falls, head injury bleeding go to ER immediately. As above, while there is no compelling evidence for alteration in her anticoagulation we will discontinue Xarelto in favor of Eliquis 5 mg twice daily to begin this evening. Subjective Date/time seen: 04/13/23 13:19 Interval history: Cardiology follow up for atrial fibrillation, diastolic dysfunction, acute CVA Review of Systems Review of Systems: Remainder of the review of systems is otherwise negative aside from that noted in the HPI. All systems reviewed & are unremarkable except as noted in HPI and below Constitutional: Constitutional: Reports as per HPI and Reports no additional constitutional complaints Eyes: Eyes: Reports as per HPI and Reports no additional eye complaints ENT: Reports system reviewed and no additional complaints, except as documented and Reports as per HPI Cardiovascular: Cardiovascular: Reports as per HPI and Reports no additional cardiovascular complaints Respiratory: Respiratory: Reports as per HPI and Reports no additional respiratory complaints Gastrointestinal: Gastrointestinal: Reports as per HPI and Reports no additional gastrointestinal complaints Genitourinary: Genitourinary: Reports as per HPI Musculoskeletal: Musculoskeletal: Reports no additional musculoskeletal complaints and Reports as per HPI Integumentary/Breasts: Skin/Breast: Reports system reviewed and no additional complaints, except as docu and Reports as per HPI Neurologic: Reports system reviewed and no additional complaints, except as documented and Reports as per HPI Psychiatric: Psychiatric: Reports no additional psychiatric complaints and Reports as per HPI Endocrine: Endocrine: Reports no additional endocrine complaints and Reports as per HPI Hematologic/Lymphatic: Hematologic/Lymphatic: Reports no additional hematologic/lymph
--- NOTE | 2023-04-13 15:28 | PM.DS ---
DS: Admitting Diagnosis Discharge Date 04/13/2023: Admitting Diagnosis Stroke-like symptoms Persistent atrial fibrillation DS: Discharge Diagnosis Discharge Diagnosis (1) Chronic anticoagulation: Code(s): Z79.01 - nursing home (current) use of anticoagulants Status: Acute (2) Chronic diastolic heart failure: Code(s): I50.32 - Chronic diastolic (congestive) heart failure Status: Acute (3) Paroxysmal atrial fibrillation: Code(s): I48.0 - Paroxysmal atrial fibrillation Status: Acute (4) Stroke: Code(s): I63.9 - Cerebral infarction, unspecified Status: Acute (5) Stroke-like symptoms: Code(s): R29.90 - Unspecified symptoms and signs involving the nervous system Status: Acute (6) Obesity: Code(s): E66.9 - Obesity, unspecified Status: Acute (7) Mitral regurgitation: Code(s): I34.0 - Nonrheumatic mitral (valve) insufficiency Status: Acute (8) Atrial fibrillation, persistent: Code(s): I48.19 - Other persistent atrial fibrillation Status: Acute (9) Diabetes: Code(s): E11.9 - Type 2 diabetes mellitus without complications Status: Acute (10) Hypertension: Code(s): I10 - Essential (primary) hypertension Status: Acute DS: Summary Hospital Course Reason for hospitalization: Patient admitted for evaluation of her stroke-like symptoms Hospital Course: H&P: HPI History of Present Illness Date/Time: 04/10/23? 23:05 Chief Complaint: ?speech disturbance Narrative: ?this is a 73-year-old female with past medical history significant for hypertension, atrial fibrillation rate controlled anticoagulated, diastolic heart failure, mitral regurg, obesity.? Patient presents to the emergency room due to episode of speech disturbance numbness and weakness of left side of the face preliminary workup has been essentially nonrevealing.? Patient has been placed in observation for further evaluation management and treatment. HOSPITAL COURSE ... Date of Admission - 04/12/2023: Assessment and Plan (1) Stroke: ?Code(s): I63.9 - Cerebral infarction, unspecified ?Status:?Acute (2) Obesity: ?Code(s): E66.9 - Obesity, unspecified ?Status:?Acute (3) Mitral regurgitation: ?Code(s): I34.0 - Nonrheumatic mitral (valve) insufficiency ?Status:?Acute (4) Atrial fibrillation, persistent: ?Code(s): I48.19 - Other persistent atrial fibrillation ?Status:?Acute (5) Lymphedema: ?Code(s): I89.0 - Lymphedema, not elsewhere classified ?Status:?Acute (6) Diabetes: ?Code(s): E11.9 - Type 2 diabetes mellitus without complications ?Status:?Acute (7) Hypertension: ?Code(s): I10 - Essential (primary) hypertension ?Status:?Acute (8) Acute on chronic diastolic heart failure: ?Code(s): I50.33 - Acute on chronic diastolic (congestive) heart failure ?Status:?Acute Plan MRI of the brain done? which showed small acute in the right frontal lobe along with several additional possible focal subacute infarcts in the periventricular white matter Patient has been advanced to full inpatient status Neurology consult given for evaluation and further treatment recommendations PT/OT/ST evaluation ordered 2D echo reviewed from 01/25/2023 which showed the preserved ejection fraction to 55-60% Patient has been on sotalol and Xarelto and she communicates compliance Cardiology consult requested to evaluate in spite of adequate anticoagulation and antiarrhythmic treatment for AFib Patient had COVID-19 3 weeks ago which could have led to precipitation this causing the stroke. Cardiology evaluated the patient and wants to switch around anticoagulation from Xarelto to Eliquis Spoke with patient and daughters in detail at bedside and answered all the questions that they had Close coordination with Neurology and Cardiology regarding DC planning Cardiology recommendations ... 04/12/2023: As
== END 2023-04-13 17:15 | disposition home health service (06) | DRG 65 ==
LOC: ANHED 04-10 20:45 → ANH3MEDSUR 04-10 21:06 → ANH2MED 04-10 23:11
PROVIDERS: Emergency Medicine; Admitting Provider Internal Medicine; Emergency Provider Emergency Medicine; PCP Family Medicine; Visit Provider Family Medicine
DX: I63.9 Cerebral infarction, unspecified (principal); I50.32 Chronic diastolic (congestive) heart failure; U09.9 Post COVID-19 condition, unspecified; R29.810 Facial weakness; R20.0 Anesthesia of skin; R47.81 Slurred speech; I51.3 Intracardiac thrombosis, not elsewhere classified; R47.1 Dysarthria and anarthria; I48.0 Paroxysmal atrial fibrillation; I25.10 Atherosclerotic heart disease of native coronary artery without angina pectoris; I11.0 Hypertensive heart disease with heart failure; E78.5 Hyperlipidemia, unspecified; I34.0 Nonrheumatic mitral (valve) insufficiency; E66.9 Obesity, unspecified; I89.0 Lymphedema, not elsewhere classified; Z68.38 Body mass index [BMI] 38.0-38.9, adult; Z79.01 Long term (current) use of anticoagulants
CPT/HCPCS: 36415; 70450; 70496; 70498; 70551; 80048; 80053; 81001; 82948; 83735; 84100; 84484; 85025; 85610; 85730; 87086; 92526; 92610; 93005; 96375; 97110; 97116; 97161; 97166; 97530; 97535; 99285; A9270; G0378; J0696; J1200; Q9967

== ENCOUNTER 2023-08-16 08:50 | Outpatient (CLI) | payer MEDICARE, SELFPAY ==
--- NOTE | 2023-09-07 21:05 | WPDSLEEPSTUD ---
Sleep Study Date of Study: 08/16/23 Ordering Provider: DAVID Mahmood Interpreting Physician: Bryanna Kaye MD Sleep Study Type: Polysomnogram Height: 1.65 m Weight: 110.223 kg Body Mass Index: 40.4 Neck Circumference (inches): 19 [place]: 8 Reason for Sleep Study Tired, decreased energy Sleep History Janeth Betancur is a 73-year-old woman with frequent feelings of fatigue and loss of energy. Her medical comorbidities include hypertension, diastolic heart failure, new atrial fibrillation in Jan 2023, diabetes, depression and acid reflux when she eats dairy products. She had a stroke this year. She sleeps in a semi-recumbent position in a recliner at home due to knee pain. She has trouble getting comfortable at home when she is in bed, and can only sleep for 30 min or so before moving to the recliner. She has slept in her recliner for 15 years. She wakes with a headache. She has a difficult time falling asleep and she wakes during the night. She occasionally has trouble sleeping when she has a cold. She rarely wakes up gasping for breath during the night. She occasionally has breathing problems at night. She never sweats excessively at night. She occasionally notices her heart pounding or beating irregularly during the night. She occasionally falls asleep during the day. She never falls asleep involuntarily, never falls asleep while driving. She never experiences loss of muscle tone with strong emotion. She never feels paralyzed on waking or falling asleep. She never experiences vivid dreams upon waking or falling asleep. She had a stroke in 2023, after this she felt afraid to go to sleep at times. She occasionally has nightmares. She rarely recalls her dreams. She occasionally has thoughts racing through her mind. She occasionally feels sad or depressed. She frequently feels anxiety which she attributes to her having cancer and moving this year.. She occasionally notices parts of her body jerk. She does not mention whether not she kicks at night. She occasionally feels crawling or aching feelings in her legs, and frequently has leg pain in her knees. She rarely has morning jaw pain. She had more morning jaw pain when she worked. She rarely grinds her teeth at night, she did this while she was working. She frequently has bothered by pain during the day especially in her knees. She occasionally is awakened by pain in her knees. She does not wake up feeling stiff in the morning. She occasionally wakes up with sore achy muscles and pain in the neck and spine. She has memory problems, concentration difficulties, nightmares, headaches. She reports a decrease of 20 lb in the last year. Normal bedtime is 11:30 p.m., falling asleep within 20-30 minute, waking 1-2 times at night. When she awakens at night, she goes to the bathroom and then turns the television on. It may take an hour for her to return to sleep. She wakes in the morning at 6:30 a.m.. Her weekend schedule is similar, going to bed at 10:30 p.m. and waking between 6:30 a.m. and 7:00 a.m.. She takes naps in the afternoon or evening. A short nap lasting 10-15 minutes may be refreshing. She is usually drowsy for 2 hours after waking. She feels better in the afternoon compared to other times of day. Habits:??Tobacco: Never smoker Caffeine: 2 cups per day. Alcohol: none Recreational substances: none PMFSH Past Medical History Medical History Atrial fibrillation, persistent Chronic diastolic heart failure Diabetes Hyperlipidemia Hypertension Lymphedema Mitral regurgitation Obesity Obstructive sleep apnea Family History Family History Father Heart disease Mother Sudden Found in an unairconditioned apartment in the summer Social History Social History (Reviewed 09/07/23 @ 21:12 by Bryanna
[2023-09-07 21:14] VITALS: BMI 40.4
== END 2023-08-17 06:50 | disposition home or self-care (01) ==
LOC: ANHCSM 08:52
PROVIDERS: PCP Family Medicine; Visit Provider Physician Assistant
DX: G47.9 Sleep disorder, unspecified (principal); G47.10 Hypersomnia, unspecified; I48.19 Other persistent atrial fibrillation; E11.9 Type 2 diabetes mellitus without complications; E78.5 Hyperlipidemia, unspecified; I50.32 Chronic diastolic (congestive) heart failure; I11.0 Hypertensive heart disease with heart failure; E66.9 Obesity, unspecified; Z68.41 Body mass index [BMI] 40.0-44.9, adult
CPT/HCPCS: 95810

== ENCOUNTER 2023-10-27 00:22 | Day surgery (SDC) | payer MEDICARE, SELFPAY ==
[2023-10-19 14:41] VITALS: BMI 40.8
--- NOTE | 2023-10-19 14:43 | PC.NURSE ---
Spoke with _DAUGHTERDARIN_ regarding medication ELIQUIS, verbalizes understanding that the last dose of ELIQUIS is to be taken on 10/24/2023 and the Endoscopist will instruct them when to restart after the procedure. She is to continue taking the Aspirin 81mg daily.
--- NOTE | 2023-10-27 11:52 | PM.HPGS ---
History of Present Illness History of Present Illness Consent: Risks, benefits, and alternatives have been discussed and questions answered. Patient agrees to proceed with procedure. Chief complaint: Rectal bleeding Narrative: Janeth Betancur is a 73 year old female with intermittent rectal bleeding, had colonoscopy about 5 years ago Review of Systems Review of Systems: All systems reviewed & are unremarkable except as noted in HPI and below PMFSH Past Medical History Medical History (Updated 10/27/23 @ 11:53 by Jonny Darnell MD) Atrial fibrillation, persistent Chronic diastolic heart failure Diabetes Hyperlipidemia Hypertension Lymphedema Mitral regurgitation Obesity Obstructive sleep apnea Rectal bleeding Family History Family History Father Heart disease Mother Sudden Found in an unairconditioned apartment in the summer Social History Social History Social History: Patient lives with her was undergoing chemotherapy. Has at least 2 daughters, one of whom is Hortencia. Smoking status: Never smoker Alcohol intake: current Substance use: never Substance use type: does not use Do You Feel Safe in your Home?: Yes Lack of Transportation: No Lack of Food: Never True Current Housing: I Have Housing Concerned About Future Housing: No Difficulty Paying Gas/Electric Bills: No Difficulty Paying for Meds: No Currently Unemployed: No Education: Associate Degree Difficulty w/ Childcare or Family Care: No Living arrangements: with family Spiritual care concerns: No Meds Home Medications and Allergies Home Medications Medication Instructions Recorded Confirmed Type ammonium lactate 12 % lotion 1 applic topical DAILY PRN Dry Skin 01/25/23 10/27/23 History citalopram 10 mg tablet 10 mg PO HS 01/25/23 10/27/23 History rosuvastatin 20 mg tablet 20 mg PO DAILY 01/25/23 10/27/23 History empagliflozin 10 mg tablet 10 mg PO DAILY 30 days #30 tabs 01/31/23 10/27/23 Rx (Jardiance) sotalol 80 mg tablet 40 mg PO BID #30 tabs 01/31/23 10/27/23 Rx spironolactone 25 mg tablet 25 mg PO QAM #30 tabs 01/31/23 10/27/23 Rx telmisartan 40 mg tablet 40 mg PO HS #30 tabs 01/31/23 10/27/23 Rx cetirizine 10 mg tablet 10 mg PO DAILY 04/10/23 10/27/23 History cholecalciferol (vitamin D3) 125 5,000 unit PO DAILY 04/10/23 10/27/23 History mcg (5,000 unit) capsule krill oil 350 mg PO HS 04/10/23 10/27/23 History vitamin B complex-vit B12 1 tab-cap PO DAILY 04/10/23 10/27/23 History apixaban 5 mg tablet (Eliquis) 5 mg PO Q12HR #60 tabs 04/13/23 10/27/23 Rx aspirin 81 mg tablet,delayed 81 mg PO DAILY #100 tabs 04/13/23 10/27/23 Rx release semaglutide 0.25 mg or 0.5 mg (2 0.25 mg subcut WEEKLY 08/08/23 10/27/23 History mg/3 mL) subcutaneous pen injector (OzCytoLogic) eszopiclone 2 mg tablet (Lunesta) 2 mg PO HS 10/19/23 10/27/23 History polyethylene glycol 3350 17 8.5 g PO EVERY OTHER DAY 10/19/23 10/27/23 History gram/dose oral powder (Miralax) Allergies Allergy/AdvReac Type Severity Reaction Status Date / Time iodine Allergy Rash Verified 10/27/23 11:40 Penicillins Allergy Other Verified 10/27/23 11:40 Exam Const: General: comfortable and no acute distress HENMT: Face/Nose/Sinus: Normal nares present Eyes: General: appearance normal, both eyes and all related structures Neck: Neck: no JVD Resp: Auscultation: clear to auscultation bilaterally Cardio: Rate: regular rate Rhythm: regular rhythm GI: Inspection: non-distended GI Palp: Yes Soft to palpation Skin: General skin exam: normal color Neuro: General: gait normal Speech: normal speech Extrem: General: normal to inspection Psych: Mental Status: mental status grossly normal Assessment and Plan Assessment and plan (1) Rectal bleeding:
--- NOTE | 2023-10-27 11:58 | WPDANESEPPF ---
Anes - Initial Pre Proc Eval Procedure: Operation Date: 10/27/23 13:00 Proposed Procedures p Colonoscopy - Jonny Darnell MD Date/Time: 10/27/23 11:58 Surgeon: Jonny Darnell MD Pre Op Diagnosis: Rectal bleeding Patient Data Age: 73 Gender: F Height: 1.65 m Weight: 111.2 kg Allergies Allergy/AdvReac Type Severity Reaction Status Date / Time iodine Allergy Rash Verified 10/27/23 11:40 Penicillins Allergy Other Verified 10/27/23 11:40 Home Medications Medication Instructions Recorded Confirmed Type ammonium lactate 12 % lotion 1 applic topical DAILY PRN Dry Skin 01/25/23 10/27/23 History citalopram 10 mg tablet 10 mg PO HS 01/25/23 10/27/23 History rosuvastatin 20 mg tablet 20 mg PO DAILY 01/25/23 10/27/23 History empagliflozin 10 mg tablet 10 mg PO DAILY 30 days #30 tabs 01/31/23 10/27/23 Rx (Jardiance) sotalol 80 mg tablet 40 mg PO BID #30 tabs 01/31/23 10/27/23 Rx spironolactone 25 mg tablet 25 mg PO QAM #30 tabs 01/31/23 10/27/23 Rx telmisartan 40 mg tablet 40 mg PO HS #30 tabs 01/31/23 10/27/23 Rx cetirizine 10 mg tablet 10 mg PO DAILY 04/10/23 10/27/23 History cholecalciferol (vitamin D3) 125 5,000 unit PO DAILY 04/10/23 10/27/23 History mcg (5,000 unit) capsule krill oil 350 mg PO HS 04/10/23 10/27/23 History vitamin B complex-vit B12 1 tab-cap PO DAILY 04/10/23 10/27/23 History apixaban 5 mg tablet (Eliquis) 5 mg PO Q12HR #60 tabs 04/13/23 10/27/23 Rx aspirin 81 mg tablet,delayed 81 mg PO DAILY #100 tabs 04/13/23 10/27/23 Rx release semaglutide 0.25 mg or 0.5 mg (2 0.25 mg subcut WEEKLY 08/08/23 10/27/23 History mg/3 mL) subcutaneous pen injector (Ozempic) eszopiclone 2 mg tablet (Lunesta) 2 mg PO HS 10/19/23 10/27/23 History polyethylene glycol 3350 17 8.5 g PO EVERY OTHER DAY 10/19/23 10/27/23 History gram/dose oral powder (Miralax) Patient hx anesthesia problems: none Family hx anesthesia problems: none Results Review: All pre-operative results and documents have been reviewed as part of the pre-operative evaluation. [facility] Past Medical History Medical History (Updated 10/27/23 @ 11:53 by Jonny Darnell MD) Atrial fibrillation, persistent Chronic diastolic heart failure Diabetes Hyperlipidemia Hypertension Lymphedema Mitral regurgitation Obesity Obstructive sleep apnea Rectal bleeding Family History Family History Father Heart disease Mother Sudden Found in an unairconditioned apartment in the summer Social History Social History Social History: Patient lives with her was undergoing chemotherapy. Has at least 2 daughters, one of whom is Hortencia. Smoking status: Never smoker Alcohol intake: current Substance use: never Substance use type: does not use Do You Feel Safe in your Home?: Yes Lack of Transportation: No Lack of Food: Never True Current Housing: I Have Housing Concerned About Future Housing: No Difficulty Paying Gas/Electric Bills: No Difficulty Paying for Meds: No Currently Unemployed: No Education: Associate Degree Difficulty w/ Childcare or Family Care: No Living arrangements: with family Spiritual care concerns: No Anes - Eval Final PreProcedure Day of Procedure 10/27/23 11:58 Patient weight: morbidly obese Heart: regular rate and rhythm Lungs: clear to auscultation Airway: Mallampati scale class II Neurological: alert and oriented Last oral intake: >/= 8 hours ASA classification: III Emergent: no Anesthetic plan: proceed Anesthesia type and monitoring: general GIVS and standard monitoring Results Review: All pre-operative results and documents have been reviewed as part of the pre-operative evaluation. Informed Consent: The patient's anesthetic plan and its attendant risks and benefits were
[2023-10-27 12:01] LABS: Glucose Point of Care 98 mg/dl (65-105)
[2023-10-27] MEDS: LACTATED RINGERS 1,000 ML 150 ML IV CONT (12:01)
[2023-10-27 12:15] VITALS: BP 96/60; PULSE 79; RESP 20; O2SAT 96
[2023-10-27 12:25] VITALS: BP 115/62; PULSE 73; RESP 20; O2SAT 100
[2023-10-27 12:35] VITALS: BP 143/82; PULSE 73; RESP 20; O2SAT 99
== END 2023-10-27 12:56 | disposition home or self-care (01) ==
PROVIDERS: PCP Family Medicine; Visit Provider Internal Medicine Gastroenterology
PROC: 0DJD8ZZ Inspection of Lower Intestinal Tract, Via Natural or Artificial Opening Endoscopic (ICD-10-PCS; CPT 45378; principal; 2023-10-27 13:00)
DX: K64.8 Other hemorrhoids (principal); K57.30 Diverticulosis of large intestine without perforation or abscess without bleeding; I10 Essential (primary) hypertension; E78.5 Hyperlipidemia, unspecified; I48.19 Other persistent atrial fibrillation; I50.32 Chronic diastolic (congestive) heart failure; E11.9 Type 2 diabetes mellitus without complications; I34.0 Nonrheumatic mitral (valve) insufficiency; G47.33 Obstructive sleep apnea (adult) (pediatric); E66.01 Morbid (severe) obesity due to excess calories; Z68.41 Body mass index [BMI] 40.0-44.9, adult; Z79.84 Long term (current) use of oral hypoglycemic drugs; Z79.01 Long term (current) use of anticoagulants; Z79.82 Long term (current) use of aspirin; Z79.85 Long-term (current) use of injectable non-insulin antidiabetic drugs; Z82.49 Family history of ischemic heart disease and other diseases of the circulatory system
CPT/HCPCS: 45378; 82948; J2704; J7120

== ENCOUNTER 2023-12-24 10:56 | Emergency (ER) | payer MEDICARE, SELFPAY ==
[2023-12-24 11:08] VITALS: BP 139/68; PULSE 100; RESP 18; TEMP 36.5; O2SAT 95
--- NOTE | 2023-12-24 11:39 | ED_ITS ---
HPI - Female Genitourinary General Chief complaint: Urogenital-Female Stated complaint: UTI Time Seen by Provider: 12/24/23 11:17 Source: patient, family (Daughter) and RN notes reviewed Mode of arrival: ambulatory Limitations: no limitations History of Present Illness HPI Narrative: Patient presents today complaining of a one-week history of dysuria, frequency, incontinence of urine, hematuria. Symptoms worsened yesterday. Since arrival at [facility] she has not been the right urine. Mother has been provided. Patient states she was at her PCPs office at the end of October with similar symptoms and urine sample was provided. She did not have an infection at that time. Related Data Home Medications Medication Instructions Recorded Confirmed citalopram 10 mg tablet 10 mg PO HS 01/25/23 12/24/23 rosuvastatin 20 mg tablet 20 mg PO DAILY 01/25/23 12/24/23 cetirizine 10 mg tablet 10 mg PO DAILY 04/10/23 12/24/23 cholecalciferol (vitamin D3) 125 5,000 unit PO DAILY 04/10/23 12/24/23 mcg (5,000 unit) capsule krill oil 350 mg PO HS 04/10/23 12/24/23 vitamin B complex-vit B12 1 tab-cap PO DAILY 04/10/23 12/24/23 semaglutide 0.25 mg or 0.5 mg (2 0.25 mg subcut WEEKLY 08/08/23 12/24/23 mg/3 mL) subcutaneous pen injector (Ozempic) eszopiclone 2 mg tablet (Lunesta) 2 mg PO HS 10/19/23 12/24/23 polyethylene glycol 3350 17 8.5 g PO EVERY OTHER DAY 10/19/23 12/24/23 gram/dose oral powder (Miralax) furosemide 20 mg tablet 20 mg DAILY 12/24/23 12/24/23 Allergies Allergy/AdvReac Type Severity Reaction Status Date / Time iodine Allergy Rash Verified 12/24/23 11:23 Penicillins Allergy Other Verified 12/24/23 11:23 Sulfa (Sulfonamide Allergy Rash Verified 12/24/23 11:23 Antibiotics) Review of Systems Review of Systems: CONSTITUTIONAL: Denies body aches, fever, chills, or sweats. EYES: Denies visual changes, redness, or discharge. ENT: Denies rhinorrhea, congestion, sore throat, or otalgia. CARDIOVASCULAR: Denies chest pain, palpitations, or edema. RESPIRATORY: Denies cough or dyspnea. GASTROINTESTINAL: Denies abdominal pain, nausea, vomiting, or diarrhea. GENITOURINARY: + dysuria, frequency, incontinence, hematuria SKIN: Denies rash, itching, or wounds. MUSCULOSKELETAL: Denies back pain, joint pain, or myalgia. NEUROLOGIC: Denies headache, numbness, tingling, or weakness. PSYCH: Denies depression or anxiety. [facility] Past Medical History Medical History Atrial fibrillation, persistent Chronic diastolic heart failure Diabetes Hyperlipidemia Hypertension Lymphedema Mitral regurgitation Obesity Obstructive sleep apnea Rectal bleeding Family History Family History Father Heart disease Mother Sudden Found in an unairconditioned apartment in the summer Social History Social History Social History: Patient lives with her was undergoing chemotherapy. Has at least 2 daughters, one of whom is Hortencia. Smoking status: Never smoker Alcohol intake: current Substance use: never Substance use type: does not use Do You Feel Safe in your Home?: Yes Lack of Transportation: No Lack of Food: Never True Current Housing: I Have Housing Concerned About Future Housing: No Difficulty Paying Gas/Electric Bills: No Difficulty Paying for Meds: No Currently Unemployed: No Education: Associate Degree Difficulty w/ Childcare or Family Care: No Living arrangements: with family Spiritual care concerns: No Comments At time of signature, I have reviewed and agree with nursing past medical, surgical, social and family history unless otherwise noted. Please see nursing chart for further information. There is no relevant family history pertinent to the presenting complaint Exam Narrative: GENERAL: Well-appearing, well-nourished, and in no acute distress. HEAD: Normocephalic, atraumatic. EYES: EOMI. No redness or drainage. Conjunctivae normal. ENT: Mucous membranes pink and moist. NECK: Normal AROM. Supple. No lymphadenopathy. CHEST: No respiratory distress. Clear to auscultation. HEART: Regular rate and rhythm. No murmur appreciated. ABDOMEN: Soft, nontender, nondistended, normal active bowel sounds. EXTREMITIES: Normal range of motion. No edema. SKIN: Warm, dry, no rash. Capillary refill normal. Normal skin turgor. NEURO: No focal deficits. Alert and oriented x3. Gait steady with cane. PSYCH: Normal affect. No signs of depression or anxiety. Course Course Emergency Course: 1215- Continue to wait for patient to provide urine sample. Water has been provided. Level of Care: Express Care Visit Vital Signs Vital signs: Vital Signs Temperature 97.7 F 12/24/23 11:08 Pulse Rate 100 12/24/23 11:08 Respiratory Rate 18 12/24/23 11:08 Blood Pressure 139/68 12/24/23 11:08 Pulse Oximetry 95 12/24/23 11:08 Oxygen Delivery Room Air 12/24/23 11:08 Temperature 97.7 F 12/24/23 11:08 Pulse Rate 100 12/24/23 11:08 Respiratory Rate 18 12/24/23 11:08 Blood Pressure 139/68 12/24/23 11:08 Pulse Oximetry 95 12/24/23 11:08 Oxygen Delivery Room Air 12/24/23 11:08 Reviewed MDM - Female Genitourinary MDM Narrative Medical decision making narrative: Patient's urinalysis is consistent with UTI. Culture pending. Prescription for Keflex sent to pharmacy. Anticipatory guidance given. Differential Diagnosis Differential diagnosis: Likely urinary tract infection, vaginitis and cystitis Lab Data Attestation: I reviewed the patient's lab results. Labs: Lab Results 12/24/23 Range/Units 12:56 POC Urine Color Yellow POC Urine Clarity Clear POC Urine pH 7.0 POC Ur Specif [place] 1.015 POC Urine Protein Negative (Negative) POC Ur Glucose (UA) 2+ (Negative) POC Urine Ketones Negative (Negative) POC Urine Blood 2+ (Negative) POC Urine Nitrite Negative (Negative) POC Urine Bilirubin Negative (Negative) POC Urine Urobilinogen 0.2 POC U Leukocyte Esteras Trace (Negative) Critical Care Time Critical Care Time Critical Care Time: No Discharge Plan Discharge Clinical Impression: Urinary tract infection Qualifiers: Urinary tract infection type: acute cystitis Hematuria presence: with hematuria Qualified Code(s): N30.01 - Acute cystitis with hematuria Patient Disposition: Home, Self-Care Condition: Stable Instructions: Antibiotic Form, Urinary Tract Infection in Older Adults (ED) Additional Instructions: Your urine shows infection today. Take the Keflex as prescribed until gone. Your urine will be sent of for a culture to identify what type of bacteria is causing your infection. If the culture shows that your medication will not get rid of your infection, you will be notified and a new antibiotic will be called in for you. If your symptoms worsen to include fever, sweats, chills, nausea, vomiting, severe abdominal or back pain, please go to the ER for further evaluation. Your blood pressure was elevated above 120/80 today at Urgent Care. This puts you above the threshold for follow up. Please schedule a followup visit with your personal physician as soon as possible, for further evaluation and treatment. Even blood pressure exceeding 120/80 may indicate pre-hypertension. Prescriptions: New cephalexin 500 mg capsule 500 mg PO Q6H 7 Days Qty: 28 0RF No Action furosemide 20 mg tablet 20 mg DAILY Ozempic 0.25 mg or 0.5 mg (2 mg/3 mL) pen injector 0.25 mg subcut WEEKLY citalopram 10 mg tablet 10 mg PO HS rosuvastatin 20 mg tablet 20 mg PO DAILY Jardiance 10 mg Tablet 10 mg PO DAILY 30 Days Qty: 30 0RF spironolactone 25 mg Tablet 25 mg PO QAM Qty: 30 0RF sotalol 80 mg tablet 40 mg PO BID Qty: 30 0RF polyethylene glycol 3350 [Miralax] 17 gram/dose Powder 8.5 g PO EVERY OTHER DAY eszopiclone [Lunesta] 2 mg tablet 2 mg PO HS cetirizine 10 mg Tablet 10 mg PO DAILY cholecalciferol (vitamin D3) 125 mcg (5,000 unit) Capsule 5,000 unit PO DAILY krill oil 350 mg PO HS vitamin B complex-vit B12 1 tab-cap PO DAILY Eliquis 5 mg Tablet 5 mg PO Q12HR Qty: 60 0RF aspirin 81 mg tablet,delayed release (DR/EC) 81 mg PO DAILY Qty: 100 0RF Follow-up/Referrals: Luana,Charis Mckeon MD [Primary Care Provider] - Time of Disposition: 13:07
--- NOTE | 2023-12-24 12:20 | PC.NURSE ---
1218- Pt and daughter at bs sitting comfortably. Water given. Pt still unable to provide urine sample. Stated, she did not take her lasix this morning as she was afraid it would cause her to have incontinence while they were out.
[2023-12-24 13:03] LABS: EDUAAPPEAR Clear; EDUABILI Negative (Negative); EDUABLOOD 2+ (Negative); EDUACOLOR1 Yellow; EDUAGLUCOSE 2+ (Negative); EDUAKETONE Negative (Negative); EDUALEUKO Trace (Negative); EDUANITRATE Negative (Negative); EDUAPROTEIN Negative (Negative); EDUASPGRAVITY 1.015; EDUAUROBILI 0.2
== END 2023-12-24 13:09 | disposition home or self-care (01) ==
PROVIDERS: Emergency Provider Nurse Practitioner; PCP Family Medicine
DX: N30.01 Acute cystitis with hematuria (principal); I48.19 Other persistent atrial fibrillation; I11.0 Hypertensive heart disease with heart failure; I50.32 Chronic diastolic (congestive) heart failure; E11.9 Type 2 diabetes mellitus without complications; E78.5 Hyperlipidemia, unspecified; E66.9 Obesity, unspecified; Z68.41 Body mass index [BMI] 40.0-44.9, adult
CPT/HCPCS: 81003; 87086; 99213; G0463